=== PATIENT | female | born 1955 | race Caucasian/White ===

== ENCOUNTER → 2017-06-11 09:47 | Outpatient (CLI) | payer BC, SELFPAY ==
--- NOTE | 2017-06-11 09:52 | RAD_ITS ---
STUDY: X-RAY - LUMBAR SPINE REASON FOR EXAM: Female, 61 years old. Chronic low back pain radiating down right leg TECHNIQUE: 5 view(s) of the lumbar spine were obtained. COMPARISON: Prior study of 11/15/2009 FINDINGS: Normal lumbar lordosis. There is a mild mid lumbar levoscoliosis. There is a normal alignment of the vertebrae. There is diffuse endplate spondylosis. There is multi-level degenerative disc disease with multi-level disc space narrowing. There is no demonstrated fracture. There are bilateral degenerative facet changes from the L3-4 through L5-S1 levels. The soft tissue structures are unremarkable. RAD/L/S Spine Min 4 Views IMPRESSION: Degenerative changes of the spine, as detailed above. The degree of degenerative disease has slightly increased in severity in the interval. Electronically Signed: Kenny Head MD at 22:21 EST , Service support ,
--- NOTE | 2017-06-11 09:52 | RAD_ITS ---
STUDY: X-RAY - RIGHT HAND REASON FOR EXAM: Female, 61 years old. Second metacarpal pain TECHNIQUE: 3 view(s) of the hand. COMPARISON: None. FINDINGS: Normal radiocarpal articulation. Normal distal radioulnar joint. Normal visualized carpal bones. Normal carpal articulations Normal carpometacarpal articulation of the thumb. Normal second through fifth carpometacarpal joints. There are mild osteoarthritic changes of the first and second metacarpophalangeal joints, first interphalangeal joint, second, third, and fifth DIP joints. There are several tiny soft tissue calcifications lateral to the second metacarpal head. RAD/Hand Min 3 Views IMPRESSION: Mild diffuse osteoarthritic changes as reported above. Electronically Signed: Kenny Head MD at 22:15 EST , Service support ,
== END ==
LOC: MTRAD 09:49
PROVIDERS: Family Provider Family Medicine; PCP Family Medicine; Visit Provider Family Medicine
DX: S69.91XA Unspecified injury of right wrist, hand and finger(s), initial encounter (principal); X58.XXXA Exposure to other specified factors, initial encounter; Y93.9 Activity, unspecified; Y92.9 Unspecified place or not applicable; Y99.9 Unspecified external cause status; M54.9 Dorsalgia, unspecified; G89.29 Other chronic pain; M54.16 Radiculopathy, lumbar region
CPT/HCPCS: 72110; 73130

== ENCOUNTER 2017-10-01 08:55 | Emergency (ER) | payer BC, SELFPAY ==
--- NOTE | 2017-10-01 08:55 | DT_ITS ---
This patient was seen during an EMR downtime September 30, 2017 - October 07, 2017. This patient may have a combination of paper and electronic documentation or all paper documentation. All documentation is viewable within the e-chart portion of [employer] for each patient visit.
== END 2017-10-01 10:56 | disposition home or self-care (01) ==
PROVIDERS: Emergency Provider Emergency Medicine; Family Provider Family Medicine; PCP Family Medicine
DX: M54.41 Lumbago with sciatica, right side (principal); G89.29 Other chronic pain; E11.9 Type 2 diabetes mellitus without complications; Z79.4 Long term (current) use of insulin; Z72.0 Tobacco use
CPT/HCPCS: 96372; 99284

== ENCOUNTER → 2017-11-14 16:02 | Outpatient (CLI) | payer BC, SELFPAY ==
[2017-11-14 19:50] LABS: M R Staph aureus DNA By PCR Negative (Negative); Probe Check PASS; Staph aureus DNA By PCR NEGATIVE (Negative)
== END ==
PROVIDERS: Visit Provider Family Medicine
DX: E11.621 Type 2 diabetes mellitus with foot ulcer (principal); L97.509 Non-pressure chronic ulcer of other part of unspecified foot with unspecified severity
CPT/HCPCS: 87640

== ENCOUNTER → 2017-12-27 10:03 | Outpatient (CLI) | payer BC, SELFPAY | PROVIDERS: Family Provider Family Medicine; PCP Family Medicine; Visit Provider Family Medicine | DX: Z12.31 Encounter for screening mammogram for malignant neoplasm of breast (principal) | CPT/HCPCS: 77063; 77067 ==

== ENCOUNTER 2018-02-07 11:57 | Outpatient (RCR) | payer BC, SELFPAY ==
--- NOTE | 2018-02-07 12:44 | HP.PTEVAL ---
Patient's Visit Information GOLDIE TAPIA is a 62 year old F referred to Physical Therapy by Joseph Adrian DO with a diagnosis of BPPV. Date of Evaluation: 02/07/18 Physical Therapist: Jake Lawton DPT, OC - Visit Plan Frequency: 1x/Week Duration: 4 Weeks - Subjective Subjective: fOR 3 WEEKS INSIDIOUSLY SHE HAS SPINNING UPON arising from bed. this lasts a few seconds. Bending over also causes this at work picking up a box. Feels woozy most of the time in between episodes. Not felt normal in 4 weeks. Sleeping is never great due to stress out. Misses work alot due to back pain which is chronic. 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 Not missed due to dizzyness. Basic adls are slow but getting them done. - Objective C/s aROM WFL adn without pain. Walks well and normal and safe. Transfers I and easy. - R hallpike. + L hallpike for dizzyness and eye discomfort for 10 seconds. - Balance Scores Functional Gait Assessment Score: 27 % Disability: 10.0000 CATSIB Score (Max score 120 seconds): 120 - Goals Goal 1:: Abolish dizzyness with transfers Goal Time Frame: 2-4 Weeks Goal 2:: Bend and recover at work without symptoms. Goal Time Frame: 2-4 Weeks Goal 3:: Abolish woozy feeling 99% Goal Time Frame: 2-4 Weeks - Rehabilitation Potential Physical Therapy Diagnosis: LBPPV Rehabilitation Potential: Good - Anticipated Interventions Patient/Client Instruction: Educate patient on: Condition, Plan of Care For the Purpose of:: To increase tolerance to activity/condition/position Comment: positional treatments adn other vestibualr if needed For the Purpose of:: To increase tolerance to activity/condition/position Thank you for the opportunity to evaluate your patient. For Medicare and Medicare HMO plans, please review the plan of care and approve it. It will need to be FAXED BACK to us at [phone] for Medicare purposes. Please let me know if there are questions or concerns regarding this plan of care. Physician Signature: Date:
--- NOTE | 2018-02-11 12:26 | HP.PT.NRP ---
HP - Discharge Summary (1) - Patient Information GOLDIE TAPIA was seen in my office for initial evaluation on 02/07/18. The following Plan of Care was established for this patient: Initial Frequency: 1x/Week Initial Duration: 4 Weeks - Anticipated Interventions Patient/Client Instruction: Educate patient on: Condition, Plan of Care For the Purpose of:: To increase tolerance to activity/condition/position For the Purpose of:: To increase tolerance to activity/condition/position This patient was last seen in our office 02/07/18. Pertinent comments regarding their Physical therapy will appear below: Pt seen one visit and treated with Melinda maneuver. She was to f/u a week later but cancelled stating her problem is now gone. Will discontinue due to nonattendance At this point I will be discontinuing this patient from physical therapy. I would be happy to see this patient again in the future if found appropriate by the physician. Thank you! Jake Lawton, DPT, OC
== END 2018-02-07 19:00 | disposition home or self-care (01) ==
LOC: PT 11:57
PROVIDERS: Family Provider Family Medicine; PCP Family Medicine; Referring Provider Family Medicine; Visit Provider Family Medicine
DX: H81.10 Benign paroxysmal vertigo, unspecified ear (principal)
CPT/HCPCS: 97162; 97530

== ENCOUNTER → 2018-03-11 12:44 | Outpatient (CLI) | payer BC, SELFPAY ==
[2018-03-11 14:31] LABS: ALB/GLOB Ratio 0.8 RATIO (0.9-2.4); AST(SGOT) 15 U/L (15-37); Alanine Aminotransfer ALT/SGPT 30 U/L (13-56); Albumin, Serum 3.4 g/dL (3.2-5.0); Alkaline Phosphatase 126 U/L (45-117); Anion Gap 9 (5-15); BUN 13 mg/dL (7-18); BUN/Creat Ratio 15.7 RATIO (10-20); Calcium,Total 8.7 mg/dL (8.5-10.1); Chloride 103 mmol/L (98-107); Cholesterol 212 mg/dL (200); Creatinine, Serum 0.83 mg/dL (0.55-1.02); EST Glomerular Filtration Rate 74 mL/min (>60); Est Glom Filt Rate - Afr Amer 90 mL/min (>60); Globulin 4.3 g/dL (2.2-4.2); Glucose 124 mg/dL (74-106); High Density Lipoprotein 44 mg/dL; Potassium 4.5 mmol/L (3.5-5.1); Protein, Total 7.7 g/dL (6.4-8.2); Sodium Level 140 mmol/L (136-145); Thyroid Stim Hormone (TSH) 1.66 uIU/mL (0.358-3.74); Triglycerides 159 mg/dL; Very Low Density Lipoprotein 32 mg/dL (5-40)
== END ==
PROVIDERS: Family Provider Family Medicine; PCP Family Medicine; Referring Provider Family Medicine; Visit Provider Family Medicine
DX: E11.40 Type 2 diabetes mellitus with diabetic neuropathy, unspecified (principal); R53.83 Other fatigue
CPT/HCPCS: 36415; 80053; 80061; 82043; 82570; 84443

== ENCOUNTER 2018-05-18 17:22 | Emergency (ER) | payer BC, SELFPAY ==
[2018-05-18] VITALS (8 sets, daily range): BP systolic 138–149; BP diastolic 76–77; PULSE 69–88; RESP 16–20; TEMP 36.2–36.9; O2SAT 93–97; BMI 48.2
--- NOTE | 2018-05-18 17:45 | EKG12_ITS ---
Test Reason : SOB Blood Pressure : / mmHG Vent. Rate : 068 BPM Atrial Rate : 068 BPM P-R Int : 206 ms QRS Dur : 078 ms QT Int : 396 ms P-R-T Axes : 059 022 041 degrees QTc Int : 421 ms Normal sinus rhythm Low voltage QRS Septal infarct (cited on or before 27-FEB-2017) Abnormal ECG Confirmed by TAL ACHARYA, CHAYO ([id number]), purchasing expeditor ABRAHAM MORALES ([id number]) on 05/20/2018 1:05:52 PM Referred By: Confirmed By:CHAYO PARADA MD
--- NOTE | 2018-05-18 17:54 | ED.VISSUMM ---
- ER Visit Summary Date of Service: 05/18/18 Chief Complaint: Shortness of breath History of Present Illness: The patient is a 62 F presents with shortness of breath, cough. This has been ongoing for the past 1.5 weeks. She was seen by urgent care on Saturday and was started on prednisone and doxycycline. She has been using albuterol inhaler at home as well. She states she has not been diagnosed with COPD but she is a smoker. She denies chest pain. She has had subjective fever and chills. She has a productive cough. Denies other complaints. Physical Examination: Vitals are stable. Patient is afebrile. Alert no acute distress. HEENT exam thrush posterior pharynx Neck is supple. Lungs are expiratory wheezing bilaterally. Heart is regular rate and rhythm. Abdomen is soft nontender nondistended. Extremities are unremarkable. Skin is warm and dry. No focal neurologic deficit. Remainder of exam is unremarkable. Emergency Department Course and Treatment: EKG is sinus rate of 68 with no acute ischemic changes. Chest x-ray shows no acute process. CBC normal except for white count 11.6. Glucose 313, BUN 20, creatinine 1.05. Troponin is negative. Influenza negative. Patient is given albuterol, Atrovent aerosols with improvement. Pulse ox is 97% on room air with ambulation. She is given prescription for nystatin and Tessalon Perles. She is advised to follow-up with her primary care physician. Advised return to ED if worsening complaints. Disposition: Discharge home Impression: URI, oral thrush This note was generated with [employer] dictation software. It may contain incorrect words, spelling, and punctuation that were not noted in review of the chart prior to signing ED Disposition - Plan for ED Patient: Disposition: Home or Assisted Living Chief Complaint: Shortness of Breath Instructions: ED Upper Resp Infec No Abx Tx Prescriptions: Benzonatate [Tessalon Perle] 200 mg PO TID PRN PRN #20 capsule PRN Reason: Cough RX: Nystatin 500,000U/5ML [Mycostatin] 5 ml PO 4X/DAY #3 days Referrals: Joseph Adrian DO [Primary Care Provider] -
[2018-05-18] MEDS: Ipratropium/Albuterol Sulfate 3 ML AMPUL.NEB INHALATION (18:07)
[2018-05-18] MEDS: Albuterol 2.5 MG/3 ML VIAL.NEB. INHALATION ×2 (18:07→18:18)
[2018-05-18 18:11] LABS: Absolute Lymphocyte Count 3.17 X10^3/ul (0.83-4.51); Absolute Neutrophil Count 7.7 X10^3/uL (2.0-7.7); Basophil# 0.03 X10^3/uL; Basophil% 0.3 % (0-1); Eosinophil# 0.08 X10^3/uL; Eosinophils% 0.7 % (0-5); Lymphocyte # 3.17 X10^3/ul (4.0); Lymphocyte % 27.3 % (19-41); Mean Corp Hgb Conc 33.3 g/gl (32-36); Mean Corpuscular Hgb 29.6 pg (27.0-32.0); Mean Corpuscular Volume 88.7 fL (81-99); Mean Platelet Vol. 10.3 fl (6.2-12.0); Monocyte# 0.63 X10^3/uL; Monocyte% 5.4 % (0-10); Neutrophil # 7.65 X10^3/uL (2.7-7.7); Neutrophil % 65.9 % (47-70); POSITIVE COUNT NO; POSITIVE DIFFERENTIAL NO; POSITIVE MORPHOLOGY NO; Platelet Count 213 K/mm3 (150-450); RBC Distribution Width CV 14.3 % (11.6-14.6); RBC Distribution Width SD 46.6 fl (35.1-43.9); Red Blood Count 5.41 M/mm3 (4.2-5.4); White Blood Count 11.6 K/mm3 (4.4-11.0)
[2018-05-18 18:24] LABS: Anion Gap 10 (5-15); BUN 20 mg/dL (7-18); Calcium,Total 8.4 mg/dL (8.5-10.1); Chloride 105 mmol/L (98-107); Creatinine, Serum 1.05 mg/dL (0.55-1.02); EST Glomerular Filtration Rate 56 mL/min (>60); Est Glom Filt Rate - Afr Amer 68 mL/min (>60); Estimated Creatinine Clearance 49.99 ml/min; Glucose 313 mg/dL (74-106); Potassium 3.9 mmol/L (3.5-5.1); Sodium Level 138 mmol/L (136-145)
--- NOTE | 2018-05-18 18:30 | RAD_ITS ---
STUDY: X-RAY CHEST REASON FOR EXAM: Female, 62 years old. Shortness of breath TECHNIQUE: Frontal and lateral views of the chest were obtained. COMPARISON: February 27, 2017 FINDINGS: Lines and tubes: None. Lungs: Hyperinflated. Increased interstitial markings throughout the lungs without focal airspace opacities. Pleura: No demonstrated abnormality. Mediastinum/kate: Unremarkable. Cardiovascular: Normal size cardiac silhouette. Central vascularity unremarkable. Thoracic aorta unremarkable. Soft tissues: Unremarkable. Bones: Degenerative changes in spine and shoulders. Mild dextroscoliosis of the thoracic spine. Upper abdomen: No demonstrated abnormality. RAD/Chest PA and Lateral IMPRESSION: No acute cardiopulmonary abnormalities. There are findings of COPD with mild fibrosis. Electronically Signed: Alida Bee MD at 19:34 EST Tel Direct: [phone], Service support ,
--- NOTE | 2018-05-18 19:47 | ED.DEP ---
ED Disposition - Plan for ED Patient: Chief Complaint: Shortness of Breath Instructions: ED Upper Resp Infec No Abx Tx Prescriptions: Benzonatate [Tessalon Perle] 200 mg PO TID PRN PRN #20 capsule PRN Reason: Cough Nystatin 500,000U/5ML [Mycostatin] 5 ml PO 4X/DAY #3 days Referrals: Joseph Adrian DO [Primary Care Provider] -
--- OUTSIDE RECORDS SUMMARY | 2018-07-21 12:16 | XMS RPT_ITS ---
:1955 Author Organization OHIP Support Name Relationship Address Phone GIOVANNI CRUZ Unavailable Unavailable + [place] [address] WOOBR Unavailable [address] [place] [address] GIOVANNI CRUZ Unavailable Unavailable + [place] [address] WOOBR Unavailable [address] [place] [address] WOOBR Unavailable [address] [place] [address] BRICE, PAT Unavailable Unavailable + [place] [address] CRUZ, NINA Unavailable Unavailable + [place] [address] WOOBR Unavailable [address] [place] [address] BRICE, PAT Unavailable Unavailable + [place] [address] CRUZ, GIOVANNI Unavailable Unavailable + [place] [address] WOOBR Unavailable [address] [place] [address] BRICE, PAT Unavailable [address] + [place] [address] CRUZ, GIOVANNI Unavailable [address] + [place] [address] WOOBR Unavailable [address] + [address] [place] [address] BRICE, PAT Unavailable [address] + [place] [address] CRUZ, GIOVANNI Unavailable [address] + [place] [address] WOOBR Unavailable [address] + [address] [place] [address] BRICE, PAT Unavailable [address] + [place] [address] CRUZ, GIOVANNI Unavailable [address] + [place] [address] WOOBR Unavailable [address] + [address] [place] [address] BRICE, PAT Unavailable [address] + [place] [address] CRUZ, GIOVANNI Unavailable [address] + [place] [address] WOOBR Unavailable [address] + [address] [place] [address] Care Team Providers Name Role Phone MARY EVANGELISTA (PA) Referring Unavailable WOJCIECH REBOLLEDO (SHANTEL) Referring Unavailable Joseph Adrian Primary Care Unavailable Niya Wall Attending Unavailable Joseph Adrian Attending Unavailable Joseph Adrian Referring Unavailable Joseph Adrian Primary Care Unavailable Joseph Adrian Attending Unavailable Joseph Adrian Referring Unavailable Joseph Adrian Primary Care Unavailable Gabino Wilson Attending Unavailable Gabino Wilson Referring Unavailable Joseph Adrian Primary Care Unavailable Joseph Adrian Attending Unavailable Joseph Adrian Attending Unavailable Joseph Adrian Primary Care Unavailable Joseph Adrian Attending Unavailable Joseph Adrian Primary Care Unavailable Joseph Adrian Referring Unavailable Joseph Adrian Attending Unavailable Joseph Adrian Referring Unavailable Joseph Adrian Primary Care Unavailable PROBLEMS PROBLEMS DATE TYPE CONDITION / CODE ATTENDING STATUS SOURCE 03/11/2018 Unknown E11.40 - Type 2 NguyễnJoseph Active [place] diabetes mellitus Community with diabetic Hospital neuropathy, Repository unspecified / E11.40(ICD-10) 03/11/2018 Unknown R53.83 - Other Joseph Adrian Active [place] fatigue / Community R53.83(ICD-10) Hospital Repository 12/02/2017 Active Cough / NA Active [facility] R05(ICD-10) Main [place] Repository 11/14/2017 Unknown E11.621 - Type 2 Joseph Adrian Active [place] diabetes mellitus Community with foot ulcer / Hospital E11.621(ICD-10) Repository 11/14/2017 Unknown L97.509 - Joseph Adrian Active [place] Non-pressure Community chronic ulcer of Hospital other part of Repository unspecified foot with unspecified severity / L97.509(ICD-10) 10/25/2017 Unknown M54.5 - Low back Gabino Wilson Active [place] pain / Community M54.5(ICD-10) Hospital Repository PROCEDURES PROCEDURES No Procedure Records FoundRESULTS RESULTS LOW DOSE CT LUNG Observed: 05/24/2018 Status: F Source: [place] SCREENING 8:39 AM [facility] REPOSITORY [facility] Imaging Services [address] [place] [address] Lung Screening MR#: [id number] Acct: [id number] Name: JEANNETTE CRUZ Rep #: [id number] : 1955 F 62 From: Hemal Garland MD PCP: Joseph Adrian DO Status: REG CLI Study: Low Dose CT Lung Screening Date of Exam: 05/24/18 Exam# [id number] Ordering Dr: Joseph Adrian DO STUDY: LOW DOSE CT LUNG CANCER SCREENING REASON FOR EXAM: Female, 62 years old. 47 pack-year history, screening exam RADIATION DOSAGE (If Supplied By Facility): CTDIvol = ( 4.02 ) mGy, DLP = ( 129.89 ) mGycm TECHNIQUE: No contrast was administered. Low dose technique was utilized (average mAS-38 and kVp 120). 1.25 mm axial source images with a slice interval of 1.25- mm were reconstructed in lung windows. 2.5 mm axial source images with a slice interval of 2.5-mm were reconstructed in lung windows. 5.0 mm axial source images with a slice interval of 5.0-mm were reconstructed in soft tissue windows. Nodule measured using lung windows on PACS and/or independent workstation with automated measurement of minimum and maximum diameter. Nodule measurement reported as average diameter rounded to the nearest whole number. Growth is defined as an increase ins size of greater than 1.5 mm. COMPARISON: None. NODULES: Total lung nodules (excluding granulomas): 0 Emphysema: Not available Endobronchial lesion: None Aorta: Not aneurysmal. No atherosclerosis. Heart: Normal heart size. Pulmonary artery: Unremarkable for unenhanced study. Mediastinal nodes: No mediastinal dominant carolyn mass. Small, nonspecific mediastinal lymph nodes measure less than 7 mm in short axis. Other chest and abdominal findings: Adrenal glands not enlarged. There are degenerative changes of the thoracic spine. CT/Low Dose CT Lung Screening IMPRESSION: Lung-RADS category 1 - Continue annual screening with LDCT in 12 months. IMPORTANT NOTES FOR USE: ACR Lung-RADS Version 1.0 Assessment Categories Release Date: August 24, 2013 Category: Coded 0-4 bases on nodule(s) with highest degree of suspicion. Negative screen is defined as categories 1 and 2; a positive screen is defined as categories 3 and 4. Category 3 and 4A nodules that are unchanged on interval CT should be coded as category 2, and individuals returned to screening in 12 months. Category 4X: Category 3 or 4 nodules with additional imaging findings that increase the suspicion of lung cancer, such as spiculation, GGN that doubles in size in 1 year, enlarged lymph notes, etc. Category Modifiers: S (significant finding unrelated to lung cancer) and C (prior history of treated lung cancer) may be added to the 0-4 Lung-RADS Electronically Signed: Hemal Garland MD at 23:44 EST , Service support , CC: Joseph Adrian DO Java Lead Architect: Signed 12 LEAD ELECTROCARDIOGRAM Observed: 05/20/2018 Status: F Source: [place] 1:06 PM [facility] REPOSITORY [facility] Cardiovascular Services [address] [place] [address] 12 Lead EKG 05/18/18 1756 MR#: [id number] Acct: [id number] Name: JEANNETTE CRUZ Rep #: [id number] : 1955 62 From: Chris Lees MD Attending Dr: Status: DEP ER Ordering Dr: Niya Wall MD Date: 05/18/18 Location: ED Sex: F C Admitted: Test Reason : SOB Blood Pressure : / mmHG Vent. Rate : 068 BPM Atrial Rate : 068 BPM P-R Int : 206 ms QRS Dur : 078 ms QT Int : 396 ms P-R-T Axes : 059 022 041 degrees QTc Int : 421 ms Normal sinus rhythm Low voltage QRS Septal infarct (cited on or before 27-FEB-2017) Abnormal ECG Confirmed by CHRIS LEES MD ([id number]), fan mail editor ABRAHAM MORALES ([id number]) on 05/20/2018 1:05:52 PM Referred By: Confirmed By:CHRIS LEES MD 05/20/18 1305 Date Chris Lees MD CC: Niya Wall MD; Joseph Adrian DO Signed EMERGENCY DEPARTMENT Observed: 05/18/2018 Status: F Source: [place] SUMMARY 11:04 PM [facility] REPOSITORY [facility] Medical Records Department [address] [place] [address] Emergency Department Summary 05/18/18 1754 MR#: [id number] Acct: [id number] Name: JEANNETTE CRUZ Rep #: [id number] : 1955 62 From: Niya Wall MD PCP: Joseph Adrian DO Status: DEP ER - ER Visit Summary Date of Service: 05/18/18 Chief Complaint: Shortness of breath History of Present Illness: The patient is a 62 F presents with shortness of breath, cough. This has been ongoing for the past 1.5 weeks. She was seen by urgent care on Saturday and was started on prednisone and doxycycline. She has been using albuterol inhaler at home as well. She states she has not been diagnosed with COPD but she is a smoker. She denies chest pain. She has had subjective fever and chills. She has a productive cough. Denies other complaints. Physical Examination: Vitals are stable. Patient is afebrile. Alert no acute distress. HEENT exam thrush posterior pharynx Neck is supple. Lungs are expiratory wheezing bilaterally. Heart is regular rate and rhythm. Abdomen is soft nontender nondistended. Extremities are unremarkable. Skin is warm and dry. No focal neurologic deficit. Remainder of exam is unremarkable. Emergency Department Course and Treatment: EKG is sinus rate of 68 with no acute ischemic changes. Chest x-ray shows no acute process. CBC normal except for white count 11.6. Glucose 313, BUN 20, creatinine 1.05. Troponin is negative. Influenza negative. Patient is given albuterol, Atrovent aerosols with improvement. Pulse ox is 97% on room air with ambulation. She is given prescription for nystatin and Tessalon Perles. She is advised to follow-up with her primary care physician. Advised return to ED if worsening complaints. Disposition: Discharge home Impression: URI, oral thrush This note was generated with [employer] dictation software. It may contain incorrect words, spelling, and punctuation that were not noted in review of the chart prior to signing ED Disposition - Plan for ED Patient: Disposition: Home or Assisted Living Chief Complaint: Shortness of Breath Instructions: ED Upper Resp Infec No Abx Tx Prescriptions: Benzonatate [Tessalon Perle] 200 mg PO TID PRN PRN #20 capsule PRN Reason: Cough RX: Nystatin 500,000U/5ML [Mycostatin] 5 ml PO 4X/DAY #3 days Referrals: Joseph Adrian, [Primary Care Provider] - What to do if you have Problems For any increased pain, shortness of breath, bleeding, nausea or vomiting, chest pain, or any unexpected problems, contact your Primary Care Provider. Call [facility] ([phone]) or report to the closest Emergency Room. Call 911 if necessary. 05/18/18 4689 <Electronically signed by Niya Wall MD> Date Niya Wall MD Cosigner Signature (If Indicated): Date CC: Joseph Adrian DO DISCHARGE INSTRUCTION Observed: 05/18/2018 Status: F Source: [place] 7:49 PM [facility] REPOSITORY [facility] Medical Records Department [address] [place] [address] Discharge Instruction 05/18/181946 MR#: [id number] Acct: [id number] Name: JEANNETTE CRUZ Rep #: [id number] : 1955 62 From: Niya Wall MD PCP: Joseph Adrian DO Status: REG ER ED Disposition - Plan for ED Patient: Chief Complaint: Shortness of Breath Instructions: ED Upper Resp Infec No Abx Tx Prescriptions: Benzonatate [Tessalon Perle] 200 mg PO TID PRN PRN #20 capsule PRN Reason: Cough Nystatin 500,000U/5ML [Mycostatin] 5 ml PO 4X/DAY #3 days Referrals: Joseph Adrian DO [Primary Care Provider] - What to do if you have Problems For any increased pain, shortness of breath, bleeding, nausea or vomiting, chest pain, or any unexpected problems, contact your Primary Care Provider. Call [facility] ([phone]) or report to the closest Emergency Room. Call 911 if necessary. 05/18/181948 <Electronically signed by Niya Wall MD> Date Niya Wall MD Cosigner Signature (If Indicated): Date CC: Joseph Adrian DO CBC W/DIFF, AUTOMATED Collected: 05/18/2018 Status: F Source: [place] 6:00 PM [facility] REPOSITORY TYPE CODE TESTS RESULT OUT OF RANGE REFERENCE UNITS LAB L100.1000 4.4-11.0 K/mm3 High WBC 11.6 LAB L100.1200 4.2-5.4 M/mm3 High RBC 5.41 LAB L100.1300 12.0-15.0 g/dl High HGB 16.0 LAB L100.1400 37-47 % High HCT 48.0 LAB L100.1500 81-99 fL Normal MCV 88.7 LAB L100.1600 27.0-32.0 pg Normal MCH 29.6 LAB L100.1700 32-36 g/gl Normal MCHC 33.3 LAB L100.1810 11.6-14.6 % Normal RDW CV 14.3 LAB L100.1820 35.1-43.9 fl High RDW SD 46.6 LAB L100.1900 150-450 K/mm3 Normal PLT 213 LAB L100.2000 6.2-12.0 fl Normal MPV 10.3 LAB L100.2100 47-70 % Normal NEUT% 65.9 LAB L100.2200 19-41 % Normal LY% 27.3 LAB L100.2300 0-10 % Normal MONO% 5.4 LAB L100.2400 0-5 % Normal EO% 0.7 LAB L100.2500 0-1 % Normal BASO% 0.3 LAB L100.2550 0.0-0.9 % Normal IM GRAN % 0.400 Result Comment: IG% - Immature Granulocytes (promyelocytes, myelocytes and metamyelocytes) > 1% indicates that a LEFT SHIFT is Present. LAB L100.2620 2.0-7.7 X10 3/uL Normal Absolute Neut 7.7 LAB L100.2720 0.83-4.51 X10 3/ul Normal Absolute Lymph 3.17 Performed By: #### L100.0100 #### [facility] [address] [place], [place], [address] BASIC METABOLIC Collected: 05/18/2018 Status: F Source: [place] PROFILE ([facility]) 6:00 PM [facility] REPOSITORY TYPE CODE TESTS RESULT OUT OF RANGE REFERENCE UNITS LAB L501.0100 74-106 mg/dL High GLU 313 Result Comment: Glucose result greater than or equal to 200 mg/dL suggests DIABETES MELLITUS per A.D.A. criteria. Please note revised GLUCOSE reference range effective 2017. LAB L501.1000 7-18 mg/dL High BUN 20 LAB L501.1100 0.55-1.02 mg/dL High CREAT,SERUM 1.05 Result Comment: The validity of the calculated GFR AND GFRAA in patients over 70 years has not been determined. Clinical correlation is essential. LAB L501.1110 >60 mL/min Low EST GFR 56 Result Comment: Non- GFR Calc LAB L501.1115 >60 mL/min Normal EST GFR - AA 68 Result Comment: GFR Calc LAB L501.1255 ml/min Normal Estimated CRCL 49.99 LAB L501.1300 10-20 RATIO Normal BUN/CRE 19.0 LAB L501.2200 8.5-10 mg/dL Low .1 CA 8.4 LAB L501.5300 136-14 mmol/L Normal 5 NA 138 LAB L501.5600 3.5-5. mmol/L Normal 1 K 3.9 Result Comment: Slight Hemolysis, Result may be falsely increased. LAB L501.5900 98-107 mmol/L Normal CL 105 LAB L501.6100 21.0-32.0 mmol/L Normal CO2 23.0 LAB L501.6200 5-15 Normal GAP 10 Performed By: #### L500.2500, L501.4010 #### [facility] [address] [place], [address] TROPONIN-I Collected: 05/18/2018 Status: F Source: [place] 6:00 PM [facility] REPOSITORY TYPE CODE TESTS RESULT OUT OF RANGE REFERENCE UNITS LAB L501.4010 <0.045 ng/mL Normal < 0.015 TROPONIN-I Result Comment: TROPONIN-I EXPECTED VALUES <0.045 Negative 0.045 - 0.590 Consistent with Cardiac Damage > OR = 0.600 Critical Value Not every elevated troponin is indicative of VT. These values should be used with clinical judgement in examining the patient's clinical picture for diagnosis. To establish a diagnosis of VT versus myocardial injury, there must be a demonstrated rise and/or fall in the troponin values, in addition to ischemic symptoms, EKG changes, new regional wall motion abnormality, and/or angiographical evidence. PLEASE NOTE: REFERENCE RANGES EDITED 17 Performed By: #### L500.2500, L501.4010 #### [facility] [address] [place], [address] Observed: 05/18/2018 Status: F Source: [place] INFLUENZA A+B (RAPID 5:58 PM [facility]) REPOSITORY Order Date: 05/18/18 Has pt arrived? Y FLU A/B Rapid Negative test results should be confirmed with FLU PANEL MOLECULAR if indicated. Influenza Ag, Direct Presumptive NEGATIVE for Influenza A/B Antigen (See Note) Performed By: #### M101.0101 #### [facility] [address] [place], [address] CHEST PA AND LATERAL Observed: 05/18/2018 Status: F Source: [place] 5:47 PM [facility] REPOSITORY [facility] Imaging Services [address] [place] [address] Chest PA and Lateral MR#: [id number] Acct: [id number] Name: JEANNETTE CRUZ Rep #: [id number] : 1955 F 62 From: Alida Bee MD PCP: Joseph Adrian DO Status: REG ER Study: Chest PA and Lateral Date of Exam: 05/18/18 Exam# [id number] Ordering Dr: Niya Wall MD STUDY: X-RAY CHEST REASON FOR EXAM: Female, 62 years old. Shortness of breath TECHNIQUE: Frontal and lateral views of the chest were obtained. COMPARISON: February 27, 2017 FINDINGS: Lines and tubes: None. Lungs: Hyperinflated. Increased interstitial markings throughout the lungs without focal airspace opacities. Pleura: No demonstrated abnormality. Mediastinum/kate: Unremarkable. Cardiovascular: Normal size cardiac silhouette. Central vascularity unremarkable. Thoracic aorta unremarkable. Soft tissues: Unremarkable. Bones: Degenerative changes in spine and shoulders. Mild dextroscoliosis of the thoracic spine. Upper abdomen: No demonstrated abnormality. RAD/Chest PA and Lateral IMPRESSION: No acute cardiopulmonary abnormalities. There are findings of COPD with mild fibrosis. Electronically Signed: Alida Bee MD at 19:34 EST Tel Direct: [phone], Service support , CC: Niya Wall MD; Joseph Adrian DO Java Lead Architect: Signed XR CHEST 2V FRONTAL/LAT Observed: 05/12/2018 Status: F Source: [place] 3:41 PM [facility] REPOSITORY * * *Final Report* * * DATE OF EXAM: May 12 2018 3:41PM WOX [id number] - XR CHEST 2V FRONTAL/LAT / PROCEDURE REASON: Cough * * * * Physician Interpretation * * * * EXAMINATION: CHEST RADIOGRAPH (2 VIEW FRONTAL and LATERAL) CLINICAL HISTORY: Cough MQ: XC2_5 Comparison: 12/02/2017 RESULT: Lines, tubes, and devices: None. Lungs and pleura: Bilateral interstitial prominence without focal consolidation, significant pleural effusion or pneumothorax. Cardiomediastinal silhouette: Stable. Other: No acute osseous abnormality. Degenerative changes are present in the thoracic spine. IMPRESSION: Bilateral interstitial prominence without focal consolidation or pleural effusion. Java Lead Architect: PSCB Transcribe Date/Time: May 12 2018 3:54P Dictated by : SIXTO MELISSA MD This examination was interpreted and the report reviewed and electronically signed by: SIXTO MELISSA MD on May 12 2018 3:55PM EST [id number] Observed: 05/12/2018 Status: COMPLETED Source: [place] 3:31 PM [facility] REPOSITORY HNO ID: [id number] Author: Amy Purvis (RtRajendra Lora Service: (none) Author Type: [employer] Type: Progress Notes Filed: 05/12/2018 3:39 PM Note Text: Radiology Service Progress Note PATIENT NAME: Jeannette Cruz DATE OF SERVICE: May 12, 2018 TIME: 3:31 PM PATIENT IDENTITY VERIFICATION COMPLETED USING TWO (2) METHODS: Patient confirmed name verbally and Date of . PATIENT GENDER DATA: Female. status: : No status: NO. PATIENT RELEVANT IMPLANT DATA REVIEWED: Not Applicable RADIOLOGY DEPARTMENT: General X-ray: Exam(s) Completed: Chest X-Ray PERIPHERAL IV DATA: Not applicable SIGNED BY: RT Jyothi May 12, 2018 3:31 PM CNOV Observed: 05/12/2018 Status: COMPLETED Source: [place] 2:45 PM [facility] REPOSITORY Office Visit ([facility]) JEANNETTE CRUZ ([id number]) 1955 F Date Time Provider Department 05/12/18 2:45 PM WOJCIECH REBOLLEDO (KELLY) WSTR During your visit today, we recorded the following information about you: Temperature Pulse Respiration Blood pressure 98.9 degrees 88/minute 28/minute 112/70 Weight 133.4 kg Wojciech Rebolledo APRN.KELLY 05/12/2018 4:52 PM Signed Subjective HPI HPI Jeannette Cruz is a 62 year old female who presents today for CC of cough, sore throat. This started 4 days ago. Has tried otc medication. Symptoms are worsened by nothing. Risk factors patient is an everyday smoker and diabetic. 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 - Diabetes (HCC) PAST SURGICAL HISTORY Procedure Laterality Date - COLONOSCOP W/ OR W/O [facility] SPEC 02/20/13 Colonoscopy repeat 6 months - COLONOSCOP W/ OR W/O [facility] SPEC 12/18/13 Colonoscopy repeat 1 month due to prep - COLONOSCOP W/ OR W/O [facility] SPEC 01/18/2014 Colonoscopy - LIGATE FALLOPIAN TUBE Tubal ligation - PAST SURGICAL HISTORY OF CTR Right hand - REMOVAL GALLBLADDER Cholecystectomy - REMOVAL OF TONSILS,<12 Y/O Tonsillectomy - VAGINAL HYSTERECTOMY 2013 complex hyperplasia with atypia ALLERGIES Celebrex [Celecoxib] MEDICATIONS oxyCODONE-acetaminophen 7.5-325 mg TbBO Take by mouth. lovastatin (MEVACOR) 10 mg tablet Take 10 mg by mouth daily at bedtime. lisinopril (ZESTRIL, PRINIVIL) 10 mg tablet Take 10 mg by mouth once daily. LIRAGLUTIDE (VICTOZA 3-MARQUIS SUBCUTANEOUS) Inject subcutaneously. metFORMIN 500 mg tablet Take 1,000 mg by mouth twice daily with meals. phentermine HCl (PHENTERMINE ORAL) Take by mouth. gabapentin (NEURONTIN) 300 mg capsule Take 300 mg by mouth three times daily. benzonatate (TESSALON PERLES) 100 mg capsule Take 2 capsules by mouth three times daily as needed. albuterol HFA (VENTOLIN HFA) 90 mcg/actuation inhaler Inhale 2 Puffs as instructed every 4 hours as needed for Wheezing/Shortness of Breath. traMADol (ULTRAM) 50 mg tablet Take 50 mg by mouth every 8 hours as needed. predniSONE (DELTASONE) 20 mg tablet 1tablet by mouth daily for 3 days meloxicam (MOBIC) 15 mg tablet Take 1 tablet by mouth once daily. With food. albuterol HFA (PROAIR HFA) 90 mcg/actuation inhaler Inhale 2 Puffs as instructed every 4 hours as needed. ondansetron orally disintegrating (ZOFRAN ODT) 4 mg disintegrating tablet Take 1 tablet by mouth every 6 hours as needed for Nausea/Vomiting. Benzonatate (TESSALON) 200 mg capsule Take 200 mg by mouth three times daily as needed for Cough. colesevelam (WELCHOL) 625 mg tablet Take 1,875 mg by mouth three times daily. sitaGLIPtin (JANUVIA) 100 mg tablet Take 100 mg by mouth once daily. FAMILY HISTORY Problem Relation Age of Onset - Arthritis Mother - Diabetes Father - Heart Father Social History Substance Use Topics - Smoking status: Current Every Day Smoker Packs/day: 0.30 Years: 30.00 Types: Cigarettes - Smokeless tobacco: Never Used Comment: 10 cig per day - Alcohol use No Review of Systems Constitutional: Negative for fever. HENT: Positive for congestion, sinus pain and sore throat. Negative for ear pain and nosebleeds. Respiratory: Positive for cough and shortness of breath. Negative for wheezing. Cardiovascular: Negative for chest pain. Musculoskeletal: Negative for neck pain. Skin: Negative for itching and rash. Objective Blood pressure 112/70, pulse 88, temperature 37.2 ?C (98.9 ?F), temperature source Left Tympanic, resp. rate 28, weight 133.4 kg (294 lb), last menstrual period 04/29/2007, SpO2 96 %. Physical Exam Constitutional: She is oriented to person, place, and time and well-developed, well-nourished, and in no distress. Non-toxic appearance. She has a sickly appearance (mild). No distress. HENT: Head: Normocephalic and atraumatic. Right Ear: Hearing, tympanic membrane, external ear and ear canal normal. Left Ear: Hearing, tympanic membrane, external ear and ear canal normal. Nose: Nose normal. Mouth/Throat: Uvula is midline, oropharynx is clear and moist and mucous membranes are normal. Eyes: Pupils are equal, round, and reactive to light. Conjunctivae and lids are normal. Right eye exhibits no discharge. Left eye exhibits no discharge. No scleral icterus. Neck: Trachea normal and normal range of motion. Neck supple. Cardiovascular: Normal rate, regular rhythm and normal heart sounds. Pulmonary/Chest: Accessory muscle usage (prior to neb treatment. ) present. She has decreased breath sounds in the right lower field and the left lower field. She has rhonchi (scattered bilaterally, clear with cough). Lungs clear, diminished after nebulizer treatment and respirations easy, patient reports relief. Lymphadenopathy: She has no cervical adenopathy. Neurological: She is alert and oriented to person, place, and time. Skin: No rash noted. She is not diaphoretic. ASSESSMENT/PLAN: 1. Sinobronchitis - ICD9: 473.9, 490, ICD10: J32.9, J40 (primary diagnosis) - Will begin treatment with Doxycline - Supportive care with plenty of fluids, rest, and analgesia prn. - Follow up in 3-5 days if symptoms persist or worsen. -discussed smoking cessation 2. Cough - ICD9: 786.2, ICD10: R05 xr neg for active process, will treat with doxy/prednisone -If you experience chest pain/shortness of breath go to ER - ALBUTEROL SULFATE 2.5 MG/3 ML (0.083 %) SOLUTION FOR NEBULIZATION - XR CHEST 2V FRONTAL/LAT - Dictated by : SIXTO MELISSA MD Impression IMPRESSION: Bilateral interstitial prominence without focal consolidation or pleural effusion. Prescription instructions reviewed with patient as applicable. Patient advised if symptoms do not improve or if symptoms worsen sooner, to contact the office for further evaluation by their primary care physician. Potential red flag symptoms discussed with the patient. Reviewed appropriate action plan to take if red flag symptoms occur. Patient agreeable to treatment plan. Wojciech Rebolledo APRN.KELLY Deleon LPN 05/12/2018 3:20 PM Signed 2.5 solution aerosol treatment given per doctor's orders. Prior to treatment O2 Sat is 96%. Treatment completed. O2 sat is 98%. Tolerated well.Saskia Deleon LPN Referring Provider: SELF [200] Allergies As of Date: 05/12/2018 Noted Allergy Reaction CELEBREX (CELECOXIB) 10/21/2015 2 - Rash Date Reviewed: 05/12/2018 Reviewed by: Wojciech (Kelly) - Fully Assessed Reason for Visit: Flu Like Symptoms [267] Reason For Visit History Recorded Primary Visit Diagnosis:Sinobronchitis [J32.9, J40] Other Visit Diagnosis:Cough [R05] Order(s):[] albuterol 2.5 mg /3 mL (0.083 %) 2.5 mg (PROVENTIL)Disp: Rfl: XR CHEST 2V FRONTAL/LAT [[id number]] Order #: [id number] #:[id number] doxycycline monohydrate 100 mg tabletTake 1 tablet by mouth twice daily for 10 days.Disp: 20 tabletRfl: 0 predniSONE (DELTASONE) 20 mg tabletTake 2 tablets by mouth once daily for 5 days.Disp: 10 tabletRfl: 0 Prescriptions as of 05/12/2018 Sig: OXYCODONE 7.5 MG-ACETAMINOPHE* Take by mouth. LOVASTATIN 10 MG TABLET Take 10 mg by mouth daily at * LISINOPRIL 10 MG TABLET Take 10 mg by mouth once cally* VICTOZA 3-MARQUIS SUBCUTANEOUS Inject subcutaneously. METFORMIN 500 MG TABLET Take 1,000 mg by mouth twice * DOXYCYCLINE MONOHYDRATE 100 M* Take 1 tablet by mouth twice * PREDNISONE 20 MG TABLET Take 2 tablets by mouth once * PHENTERMINE ORAL Take by mouth. GABAPENTIN 300 MG CAPSULE Take 300 mg by mouth three ti* ALBUTEROL SULFATE HFA 90 MCG/* Inhale 2 Puffs as instructed * TRAMADOL 50 MG TABLET Take 50 mg by mouth every 8 h* MELOXICAM 15 MG TABLET Take 1 tablet by mouth once d* Patient not taking: Reported on 12/02/2017 ALBUTEROL SULFATE HFA 90 MCG/* Inhale 2 Puffs as instructed * Patient not taking: Reported on 12/02/2017 ONDANSETRON 4 MG DISINTEGRATI* Take 1 tablet by mouth every * Patient not taking: Reported on 12/02/2017 BENZONATATE 200 MG CAPSULE Take 200 mg by mouth three ti* Patient not taking: Reported on 12/02/2017 COLESEVELAM 625 MG TABLET Take 1,875 mg by mouth three * SITAGLIPTIN 100 MG TABLET Take 100 mg by mouth once joshua* Problem List As Of Date 05/12/2018 Noted Resolved PMB (postmenopausal bleeding) [N95.0] INVALID FOR*07/03/2013 Thickened endometrium [R93.89] INVALID FOR*07/03/2013 Complex endometrial hyperplasia without atypia *INVALID FOR*07/03/2013 Visit Notes: >> Saskia Deleon LPN Mon May 12, 2018 3:19 PM Status: Signed 2.5 solution aerosol treatment given per doctor's orders. Prior to treatment O2 Sat is 96%. Treatment completed. O2 sat is 98%. Tolerated well.Saskia Deleon LPN Prescriptions ordered this encounter Disp Refills Start End ALBUTEROL SULFATE 2.5 MG/3 ML (0.083* 05/12/2018 05/12/2018 Route: INHALATION DOXYCYCLINE MONOHYDRATE 100 MG TABLET 20 t* 0 05/12/2018 05/22/2018 Cmt: May transfer to [facility] if less expensive. Route: ORAL Sig: Take 1 tablet by mouth twice daily for 10 days. PREDNISONE 20 MG TABLET 10 t* 0 05/12/2018 05/17/2018 Route: ORAL Sig: Take 2 tablets by mouth once daily for 5 days. Medications Discontinued During This Encounter predniSONE (DELTASONE) 20 mg tablet 3 ta* 0 10/21/2015 05/12/2018 Sitablet by mouth daily for 3 days Patient not taking: Reported on 12/02/2017 Disc: Reason for discontinue is not on file. benzonatate (TESSALON PERLES) 100 mg* 30 c* 0 12/02/2017 05/12/2018 Route: ORAL Sig: Take 2 capsules by mouth three times daily as needed. Disc: Reason for discontinue is not on file. Encounter Status:Closed by WOJCIECH REBOLLEDO CNP on 05/12/18 PROGRESS Observed: 05/12/2018 Status: COMPLETED Source: [facility] 2:44 PM [facility] REPOSITORY HNO ID: [id number] Author: Wojciech Darby) Service: (none) Author Type: Nurse Practitioner Type: Progress Notes Filed: 05/12/2018 4:52 PM Note Text: Subjective HPI HPI Jeannette Cruz is a 62 year old female who presents today for CC of cough, sore throat. This started 4 days ago. Has tried otc medication. Symptoms are worsened by nothing. Risk factors patient is an everyday smoker and diabetic. 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 - Diabetes (HCC) PAST SURGICAL HISTORY Procedure Laterality Date - COLONOSCOP W/ OR W/O BRS SPEC 02/20/13 Colonoscopy repeat 6 months - COLONOSCOP W/ OR W/O BRS SPEC 12/18/13 Colonoscopy repeat 1 month due to prep - COLONOSCOP W/ OR W/O [facility] SPEC 01/18/2014 Colonoscopy - LIGATE FALLOPIAN TUBE Tubal ligation - PAST SURGICAL HISTORY OF CTR Right hand - REMOVAL GALLBLADDER Cholecystectomy - REMOVAL OF TONSILS,<12 Y/O Tonsillectomy - VAGINAL HYSTERECTOMY 2013 complex hyperplasia with atypia ALLERGIES Celebrex [Celecoxib] MEDICATIONS oxyCODONE-acetaminophen 7.5-325 mg TbBO Take by mouth. lovastatin (MEVACOR) 10 mg tablet Take 10 mg by mouth daily at bedtime. lisinopril (ZESTRIL, PRINIVIL) 10 mg tablet Take 10 mg by mouth once daily. LIRAGLUTIDE (VICTOZA 3-MARQUIS SUBCUTANEOUS) Inject subcutaneously. metFORMIN 500 mg tablet Take 1,000 mg by mouth twice daily with meals. phentermine HCl (PHENTERMINE ORAL) Take by mouth. gabapentin (NEURONTIN) 300 mg capsule Take 300 mg by mouth three times daily. benzonatate (TESSALON PERLES) 100 mg capsule Take 2 capsules by mouth three times daily as needed. albuterol HFA (VENTOLIN HFA) 90 mcg/actuation inhaler Inhale 2 Puffs as instructed every 4 hours as needed for Wheezing/Shortness of Breath. traMADol (ULTRAM) 50 mg tablet Take 50 mg by mouth every 8 hours as needed. predniSONE (DELTASONE) 20 mg tablet 1tablet by mouth daily for 3 days meloxicam (MOBIC) 15 mg tablet Take 1 tablet by mouth once daily. With food. albuterol HFA (PROAIR HFA) 90 mcg/actuation inhaler Inhale 2 Puffs as instructed every 4 hours as needed. ondansetron orally disintegrating (ZOFRAN ODT) 4 mg disintegrating tablet Take 1 tablet by mouth every 6 hours as needed for Nausea/Vomiting. Benzonatate (TESSALON) 200 mg capsule Take 200 mg by mouth three times daily as needed for Cough. colesevelam (WELCHOL) 625 mg tablet Take 1,875 mg by mouth three times daily. sitaGLIPtin (JANUVIA) 100 mg tablet Take 100 mg by mouth once daily. FAMILY HISTORY Problem Relation Age of Onset - Arthritis Mother - Diabetes Father - Heart Father Social History Substance Use Topics - Smoking status: Current Every Day Smoker Packs/day: 0.30 Years: 30.00 Types: Cigarettes - Smokeless tobacco: Never Used Comment: 10 cig per day - Alcohol use No Review of Systems Constitutional: Negative for fever. HENT: Positive for congestion, sinus pain and sore throat. Negative for ear pain and nosebleeds. Respiratory: Positive for cough and shortness of breath. Negative for wheezing. Cardiovascular: Negative for chest pain. Musculoskeletal: Negative for neck pain. Skin: Negative for itching and rash. Objective Blood pressure 112/70, pulse 88, temperature 37.2 ?C (98.9 ?F), temperature source Left Tympanic, resp. rate 28, weight 133.4 kg (294 lb), last menstrual period 04/29/2007, SpO2 96 %. Physical Exam Constitutional: She is oriented to person, place, and time and well-developed, well-nourished, and in no distress. Non-toxic appearance. She has a sickly appearance (mild). No distress. HENT: Head: Normocephalic and atraumatic. Right Ear: Hearing, tympanic membrane, external ear and ear canal normal. Left Ear: Hearing, tympanic membrane, external ear and ear canal normal. Nose: Nose normal. Mouth/Throat: Uvula is midline, oropharynx is clear and moist and mucous membranes are normal. Eyes: Pupils are equal, round, and reactive to light. Conjunctivae and lids are normal. Right eye exhibits no discharge. Left eye exhibits no discharge. No scleral icterus. Neck: Trachea normal and normal range of motion. Neck supple. Cardiovascular: Normal rate, regular rhythm and normal heart sounds. Pulmonary/Chest: Accessory muscle usage (prior to neb treatment. ) present. She has decreased breath sounds in the right lower field and the left lower field. She has rhonchi (scattered bilaterally, clear with cough). Lungs clear, diminished after nebulizer treatment and respirations easy, patient reports relief. Lymphadenopathy: She has no cervical adenopathy. Neurological: She is alert and oriented to person, place, and time. Skin: No rash noted. She is not diaphoretic. ASSESSMENT/PLAN: 1. Sinobronchitis - ICD9: 473.9, 490, ICD10: J32.9, J40 (primary diagnosis) - Will begin treatment with Doxycline - Supportive care with plenty of fluids, rest, and analgesia prn. - Follow up in 3-5 days if symptoms persist or worsen. -discussed smoking cessation 2. Cough - ICD9: 786.2, ICD10: R05 xr neg for active process, will treat with doxy/prednisone -If you experience chest pain/shortness of breath go to ER - ALBUTEROL SULFATE 2.5 MG/3 ML (0.083 %) SOLUTION FOR NEBULIZATION - XR CHEST 2V FRONTAL/LAT - Dictated by : SIXTO MELISSA MD Impression IMPRESSION: Bilateral interstitial prominence without focal consolidation or pleural effusion. Prescription instructions reviewed with patient as applicable. Patient advised if symptoms do not improve or if symptoms worsen sooner, to contact the office for further evaluation by their primary care physician. Potential red flag symptoms discussed with the patient. Reviewed appropriate action plan to take if red flag symptoms occur. Patient agreeable to treatment plan. Wojciech Rebolledo APRN.SMALL MACHINE BINDERY OPERATOR MICROALB:CREAT Collected: 03/11/2018 Status: F Source: [facility] 12:51 PM [facility] REPOSITORY TYPE CODE TESTS RESULT OUT OF RANGE REFERENCE UNITS LAB L501.1200 NO RANGE EST. mg/dL Normal UR CREAT 51.40 LAB L502.0500 NO RANGE EST. mg/L Normal 312.0 MICROALBUMIN ,UR LAB L502.0600 <30 mg/g CRE mg/g CRE High 607.0 MALB:CREAT Performed By: #### L502.0250 #### [facility] [place], [address] COMPREHENSIVE METABOLIC Collected: 03/11/2018 Status: F Source: [facility]ATHAN NAYLOR 12:51 PM [facility] REPOSITORY TYPE CODE TESTS RESULT OUT OF RANGE REFERENCE UNITS LAB L501.0100 74-106 mg/dL High GLU 124 Result Comment: Fasting Glucose result from 100 to 125 mg/dL suggests IMPAIRED HOMEOSTASIS per A.D.A. criteria. Please note revised GLUCOSE reference range effective 2017. LAB L501.1000 7-18 mg/dL Normal BUN 13 LAB L501.1100 0.55-1.02 mg/dL Normal CREAT,SERUM 0.83 Result Comment: The validity of the calculated GFR AND GFRAA in patients over 70 years has not been determined. Clinical correlation is essential. LAB L501.1110 >60 mL/min Normal EST GFR 74 Result Comment: Non- GFR Calc LAB L501.1115 >60 mL/min Normal EST GFR - AA 90 Result Comment: GFR Calc LAB L501.1300 10-20 RATIO Normal BUN/CRE 15.7 LAB L501.1500 6.4-8.2 g/dL T Normal PROT 7.7 LAB L501.1800 3.2-5.0 g/dL Normal ALB 3.4 LAB L501.1950 2.2-4.2 g/dL High GLOB 4.3 LAB L501.2000 0.9-2.4 RATIO Low A/G 0.8 LAB L501.2200 8.5-10.1 mg/dL CA Normal 8.7 LAB L501.4100 15-37 U/L Normal AST 15 Result Comment: Slight Hemolysis, Result may be falsely increased. LAB L501.4305 45-117 U/L High ALK P 126 LAB L501.4405 13-56 U/L Normal ALT 30 LAB L501.4600 0.20-1.00 mg/dL Normal T BILI 0.40 LAB L501.5300 136-145 mmol/L Normal NA 140 LAB L501.5600 3.5-5.1 mmol/L Normal K 4.5 Result Comment: Slight Hemolysis, Result may be falsely increased. LAB L501.5900 98-107 mmol/L Normal CL 103 LAB L501.6100 21.0-32.0 mmol/L Normal CO2 28.0 LAB L501.6200 5-15 Normal 9 GAP Performed By: #### L500.4050, L500.4100, L501.9520 #### [facility] [address] [place], [place], [address] LIPID PROFILE Collected: 03/11/2018 Status: F Source: NATHAN 12:51 PM [facility] REPOSITORY TYPE CODE TESTS RESULT OUT OF RANGE REFERENCE UNITS LAB L501.4900 200 mg/dL High CHOL 212 Result Comment: <200 mg/dL Desirable 200-240 mg/dL Borderline >240 mg/dL High Risk LAB L501.5000 mg/dL Normal TRIG 159 Result Comment: The drugs N-Acetylcysteine and Metamizole may falsely depress this assay. Serum Triglycerides Reference Interval Normal <150 mg/dL Borderline high 150 - 199 mg/dL High 200 - 499 mg/dL Very High > or = 500 mg/dL LAB L501.6400 mg/dL Normal HDL 44 Result Comment: The drugs N-Acetylcysteine and Metamizole may falsely depress this assay. Reference Range HDL <40 mg/dL Low HDL Cholesterol HDL >or= 60 mg/dL High HDL Cholesterol LAB L501.6500 0-130 mg/dL High LDL 136 LAB L501.6600 5-40 mg/dL Normal VLDL 32 Performed By: #### L500.4050, L500.4100, L501.9520 #### [facility] [address] [place], [place], [address] THYROID STIM HORMONE Collected: 03/11/2018 Status: F Source: NATHAN (TSH) 12:51 PM [facility] REPOSITORY TYPE CODE TESTS RESULT OUT OF RANGE REFERENCE UNITS LAB L501.9520 0.358-3.74 uIU/mL Normal TSH 1.66 Performed By: #### L500.4050, L500.4100, L501.9520 #### [facility] [address] [place], [address] INITAL EVALUATION (1) Observed: 02/10/2018 Status: F Source: NATHAN - PT 6:47 AM [facility] REPOSITORY [facility] Physical Therapy [facility] [place], [place] [address] [phone] Fax REHABILITATION SERVICES INITIAL EVALUATION MR#: [id number] Acct: [id number] Name: JEANENTTE CRUZ Rep #: [id number] : 1955 62 From: Jake Lawton DPT, OCS, CSCS Referring Dr.: Joseph Adrian DO Status: REG RCR Insurance: [employer] SELF PAY INSURANCE Patient's Visit Information JEANNETTE CRUZ is a 62 year old F referred to Physical Therapy by Joseph Adrian DO with a diagnosis of BPPV. Date of Evaluation: 02/07/18 Physical Therapist: Jake Lawton, TUYET, OC - Visit Plan Frequency: 1x/Week Duration: 4 Weeks - Subjective Subjective: fOR 3 WEEKS INSIDIOUSLY SHE HAS SPINNING UPON arising from bed. this lasts a few seconds. Bending over also causes this at work picking up a box. Feels woozy most of the time in between episodes. Not felt normal in 4 weeks. Sleeping is never great due to stress out. Misses work alot due to back pain which is chronic. 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 Not missed due to dizzyness. Basic adls are slow but getting them done. - Objective C/s aROM WFL adn without pain. Walks well and normal and safe. Transfers I and easy. - R hallpike. + L hallpike for dizzyness and eye discomfort for 10 seconds. - Balance Scores Functional Gait Assessment Score: 27 % Disability: 10.0000 CATSIB Score (Max score 120 seconds): 120 - Goals Goal 1:: Abolish dizzyness with transfers Goal Time Frame: 2-4 Weeks Goal 2:: Bend and recover at work without symptoms. Goal Time Frame: 2-4 Weeks Goal 3:: Abolish woozy feeling 99% Goal Time Frame: 2-4 Weeks - Rehabilitation Potential Physical Therapy Diagnosis: LBPPV Rehabilitation Potential: Good - Anticipated Interventions Patient/Client Instruction: Educate patient on: Condition, Plan of Care For the Purpose of:: To increase tolerance to activity/condition/position Comment: positional treatments adn other vestibualr if needed For the Purpose of:: To increase tolerance to activity/condition/position Thank you for the opportunity to evaluate your patient. For Medicare and Medicare HMO plans, please review the plan of care and approve it. It will need to be FAXED BACK to us at [phone] for Medicare purposes. Please let me know if there are questions or concerns regarding this plan of care. Physician Signature: Date: <Electronically signed by Jake Lawton DPT, OCS, CSCS> 02/10/18 0647 CC: Joseph Adrian DO EBG Signed For Medicare only, by signing this I certify the plan of care. Physicians Signature Date SCREENING MAMM (CAD), Observed: 12/27/2017 Status: F Source: [facility] 10:07 AM [facility] REPOSITORY [facility] Imaging Services [address] [place] [address] SCREENING MAMM (CAD), BILAT MR#: [id number] Acct: [id number] Name: JEANNETTE CRUZ Rep #: [id number] : 1955 F 62 From: Daniel Barba MD PCP: Joseph Adrian DO Status: REG CLI Study: SCREENING MAMM (CAD), BILAT Date of Exam: 12/27/17 Exam# [id number] Ordering Dr: Joseph Adrian DO MAMMOGRAPHY - BILATERAL SCREENING REASON FOR EXAM: Female, 62 years old. Routine annual screening examination. PERTINENT HISTORY: Non-contributory. TECHNIQUE: Digital bilateral breast edgardo (3D mammographic acquisition) in the CC and MLO projections. 2-D mediolateral oblique (MLO) and craniocaudad (CC) views of both breasts were obtained. CAD: Full Field Digital Mammography with Computer Added Detection was performed. COMPARISON: Comparison is made with prior outside examination dated February 27, 2013. FINDINGS: Breast Composition: The breasts are almost entirely fatty. There are no dominant masses or suspicious calcifications. No other significant abnormalities are identified. There has been no significant change since the prior study. BI/SCREENING MAMM (CAD), BILAT IMPRESSION: Stable bilateral screening mammogram. Yearly follow-up mammogram recommended. (A) ASSESSMENT CATEGORY: BIRADS Category 1: Negative. A letter regarding these results will be sent to the patient by the facility within 30 days. Approximately 10% of breast cancers are not detected by mammography. A normal mammogram should not delay biopsy of a clinically suspicious abnormality. [id number] Electronically Signed: Daniel Barba MD at 12:42 EDT Tel [phone], Service support , CC: Joseph Adrian DO Java Lead Architect: Signed PROGRESS Observed: 12/02/2017 Status: COMPLETED Source: [facility] 1:12 PM [facility] REPOSITORY O ID: [id number] Author: Mary Evangelista (Pa) Service: (none) Author Type: Physician Call Or Contact Centre Manager Type: Progress Notes Filed: 12/02/2017 1:20 PM Note Text: Subjective HPI Pt presents with cough, sinus pressure, congestion, for 10 days. The past couple days she has had some shortness of breath. She denies leg pain or swelling. No fevers, but she has had some chills. She states the coughing keeps her up at night. The coughing has been hurting her mid back as well. She is on oxycodone and gabapentin for chronic back pain. She denies hx of CHF or PE/DVT. No chest pain. She is a smoker. She denies known COPD. No recent travel or surgeries. Review of Systems Constitutional: Positive for chills. Negative for fever. HENT: Positive for congestion and sinus pain. Negative for sore throat. Eyes: Negative. Respiratory: Positive for cough, shortness of breath and wheezing. Negative for sputum production. Cardiovascular: Negative. Gastrointestinal: Negative. Genitourinary: Negative. Musculoskeletal: Positive for back pain. Skin: Negative. All other systems reviewed and are negative. PAST MEDICAL HISTORY Diagnosis Date - Abnormal uterine bleeding - Complex endometrial hyperplasia with atypia 2013 s/p hyst - Diabetes (HCC) Current Outpatient Prescriptions: oxyCODONE-acetaminophen 7.5-325 mg TbBO Take by mouth. Disp: Rfl: phentermine HCl (PHENTERMINE ORAL) Take by mouth. Disp: Rfl: gabapentin (NEURONTIN) 300 mg capsule Take 300 mg by mouth three times daily. Disp: Rfl: lovastatin (MEVACOR) 10 mg tablet Take 10 mg by mouth daily at bedtime. Disp: Rfl: lisinopril (ZESTRIL, PRINIVIL) 10 mg tablet Take 10 mg by mouth once daily. Disp: Rfl: LIRAGLUTIDE (VICTOZA 3-MARQUIS SUBCUTANEOUS) Inject subcutaneously. Disp: Rfl: metFORMIN 500 mg tablet Take 1,000 mg by mouth twice daily with meals. Disp: Rfl: predniSONE (DELTASONE) 20 mg tablet Take 1 tablet by mouth twice daily for 5 days. Disp: 10 tablet Rfl: 0 benzonatate (TESSALON PERLES) 100 mg capsule Take 2 capsules by mouth three times daily as needed. Disp: 30 capsule Rfl: 0 doxycycline (VIBRA-TABS) 100 mg tablet Take 1 tablet by mouth twice daily for 10 days. Disp: 20 tablet Rfl: 0 albuterol HFA (VENTOLIN HFA) 90 mcg/actuation inhaler Inhale 2 Puffs as instructed every 4 hours as needed for Wheezing/Shortness of Breath. Disp: 1 Inhaler Rfl: 0 traMADol (ULTRAM) 50 mg tablet Take 50 mg by mouth every 8 hours as needed. Disp: Rfl: predniSONE (DELTASONE) 20 mg tablet 1tablet by mouth daily for 3 days (Patient not taking: Reported on 12/02/2017 ) Disp: 3 tablet Rfl: 0 meloxicam (MOBIC) 15 mg tablet Take 1 tablet by mouth once daily. With food. (Patient not taking: Reported on 12/02/2017 ) Disp: 15 tablet Rfl: 0 albuterol HFA (PROAIR HFA) 90 mcg/actuation inhaler Inhale 2 Puffs as instructed every 4 hours as needed. (Patient not taking: Reported on 12/02/2017 ) Disp: 1 Inhaler Rfl: 0 ondansetron orally disintegrating (ZOFRAN ODT) 4 mg disintegrating tablet Take 1 tablet by mouth every 6 hours as needed for Nausea/Vomiting. (Patient not taking: Reported on 12/02/2017 ) Disp: 10 tablet Rfl: 0 Benzonatate (TESSALON) 200 mg capsule Take 200 mg by mouth three times daily as needed for Cough. (Patient not taking: Reported on 12/02/2017 ) Disp: 30 capsule Rfl: 0 colesevelam (WELCHOL) 625 mg tablet Take 1,875 mg by mouth three times daily. Disp: Rfl: sitaGLIPtin (JANUVIA) 100 mg tablet Take 100 mg by mouth once daily. Disp: Rfl: No current facility-administered medications for this visit. PAST SURGICAL HISTORY Procedure Laterality Date - COLONOSCOP W/ OR W/O [facility] SPEC 02/20/13 Colonoscopy repeat 6 months - COLONOSCOP W/ OR W/O [facility] SPEC 12/18/13 Colonoscopy repeat 1 month due to prep - COLONOSCOP W/ OR W/O [facility] SPEC 01/18/2014 Colonoscopy - LIGATE FALLOPIAN TUBE Tubal ligation - PAST SURGICAL HISTORY OF CTR Right hand - REMOVAL GALLBLADDER Cholecystectomy - REMOVAL OF TONSILS,<12 Y/O Tonsillectomy - VAGINAL HYSTERECTOMY 2014 complex hyperplasia with atypia FAMILY HISTORY Problem Relation Age of Onset - Arthritis Mother - Diabetes Father - Heart Father Social History Substance Use Topics - Smoking status: Current Every Day Smoker Packs/day: 0.30 Years: 30.00 Types: Cigarettes - Smokeless tobacco: Never Used Comment: 10 cig per day - Alcohol use No BP 138/86 Pulse 80 Temp 36.3 ?C (97.3 ?F) (Tympanic) Resp 18 Wt 129.7 kg (286 lb) LMP 04/29/2007 SpO2 97% BMI 46.87 kg/m? Objective Physical Exam Constitutional: She is oriented to person, place, and time and well-developed, well-nourished, and in no distress. HENT: Head: Normocephalic and atraumatic. Right Ear: Tympanic membrane, external ear and ear canal normal. Left Ear: Tympanic membrane, external ear and ear canal normal. Nose: Right sinus exhibits frontal sinus tenderness. Left sinus exhibits frontal sinus tenderness. Mouth/Throat: Uvula is midline, oropharynx is clear and moist and mucous membranes are normal. Eyes: Conjunctivae are normal. Pupils are equal, round, and reactive to light. Neck: Normal range of motion. Neck supple. Cardiovascular: Normal rate, regular rhythm and normal heart sounds. Pulmonary/Chest: Effort normal. No respiratory distress. She has no wheezes. She has no rales. Diminished breath sounds throughout. Musculoskeletal: Arms: Pt tender on palpation of the mid thoracic back and paraspinal muscles. Pain worsened with arm movement and bending/twisting. Lymphadenopathy: She has no cervical adenopathy. Neurological: She is alert and oriented to person, place, and time. Skin: Skin is warm and dry. Psychiatric: Affect and judgment normal. Nursing note and vitals reviewed. ASSESSMENT/PLAN: 1. Sinobronchitis - ICD9: 473.9, 490, ICD10: J32.9, J40 (primary diagnosis) - Will begin treatment with Doxycycline - Supportive care with plenty of fluids, rest, and analgesia prn. - Follow up in 3-5 days if symptoms persist or worsen. 2. Cough - ICD9: 786.2, ICD10: R05 CXR negative here. I will tx with doxycycline, tessalon, and prednisone . Also given albuterol MDI. Her back pain reproducible on palpation and ROM and with cough. I feel musculoskeletal. Prednisone will help with this and pt on chronic narcotics for back pain. Discussed with patient concerning symptoms to go to the emergency department or follow up here. Pt agreeable with this plan. - XR CHEST 2V FRONTAL/LAT Mary Evangelista PA-C XR CHEST 2V FRONTAL/LAT Observed: 12/02/2017 Status: F Source: [place] 12:15 PM [facility] REPOSITORY * * *Final Report* * * DATE OF EXAM: Dec 02 2017 12:15PM WOX [id number] - XR CHEST 2V FRONTAL/LAT / PROCEDURE REASON: Cough * * * * Physician Interpretation * * * * EXAMINATION: CHEST RADIOGRAPH (2 VIEW FRONTAL and LATERAL) Clinical History: Cough MQ: XC2_5 Comparison: None. RESULT: Lines, tubes, and devices: None. Lungs and pleura: No consolidation. No pleural effusion. No pneumothorax. Cardiomediastinal silhouette: Normal cardiomediastinal silhouette. Other: . IMPRESSION: No acute radiographic abnormality. Java Lead Architect: DANETTE Transcribe Date/Time: Dec 02 2017 12:17P Dictated by : JENNIFER REMY MD This examination was interpreted and the report reviewed and electronically signed by: JENNIFER REMY MD on Dec 02 2017 12:18PM EST [id number] Observed: 12/02/2017 Status: COMPLETED Source: [place] 12:05 PM [facility] REPOSITORY HNO ID: [id number] Author: Amy Purvis (Rt) Rajendra Azar Service: (none) Author Type: [employer] Type: Progress Notes Filed: 12/02/2017 12:15 PM Note Text: Radiology Service Progress Note PATIENT NAME: Jeannette Cruz DATE OF SERVICE: December 02, 2017 TIME: 12:05 PM PATIENT IDENTITY VERIFICATION COMPLETED USING TWO (2) METHODS: Patient confirmed name verbally and Date of . PATIENT GENDER DATA: Female. status: : No status: NO. PATIENT RELEVANT IMPLANT DATA REVIEWED: Not Applicable RADIOLOGY DEPARTMENT: General X-ray: Exam(s) Completed: Chest X-Ray PERIPHERAL IV DATA: Not applicable SIGNED BY: RT Jyothi December 02, 2017 12:05 PM CNOV Observed: 12/02/2017 Status: COMPLETED Source: [place] 11:45 AM [facility] REPOSITORY Office Visit (WSTR) JEANNETTE CRUZ ([id number]) 1955 F Date Time Provider Department 12/02/17 11:45 AM MARY EVANGELISTA) WSTR During your visit today, we recorded the following information about you: Temperature Pulse Respiration Blood pressure 97.3 degrees 80/minute 18/minute 138/86 Weight 129.7 kg Mary Evangelista PA-C 12/02/2017 1:20 PM Signed Subjective HPI Pt presents with cough, sinus pressure, congestion, for 10 days. The past couple days she has had some shortness of breath. She denies leg pain or swelling. No fevers, but she has had some chills. She states the coughing keeps her up at night. The coughing has been hurting her mid back as well. She is on oxycodone and gabapentin for chronic back pain. She denies hx of CHF or PE/DVT. No chest pain. She is a smoker. She denies known COPD. No recent travel or surgeries. Review of Systems Constitutional: Positive for chills. Negative for fever. HENT: Positive for congestion and sinus pain. Negative for sore throat. Eyes: Negative. Respiratory: Positive for cough, shortness of breath and wheezing. Negative for sputum production. Cardiovascular: Negative. Gastrointestinal: Negative. Genitourinary: Negative. Musculoskeletal: Positive for back pain. Skin: Negative. All other systems reviewed and are negative. PAST MEDICAL HISTORY Diagnosis Date - Abnormal uterine bleeding - Complex endometrial hyperplasia with atypia 2013 s/p hyst - Diabetes (HCC) Current Outpatient Prescriptions: oxyCODONE-acetaminophen 7.5-325 mg TbBO Take by mouth. Disp: Rfl: phentermine HCl (PHENTERMINE ORAL) Take by mouth. Disp: Rfl: gabapentin (NEURONTIN) 300 mg capsule Take 300 mg by mouth three times daily. Disp: Rfl: lovastatin (MEVACOR) 10 mg tablet Take 10 mg by mouth daily at bedtime. Disp: Rfl: lisinopril (ZESTRIL, PRINIVIL) 10 mg tablet Take 10 mg by mouth once daily. Disp: Rfl: LIRAGLUTIDE (VICTOZA 3-MARQUIS SUBCUTANEOUS) Inject subcutaneously. Disp: Rfl: metFORMIN 500 mg tablet Take 1,000 mg by mouth twice daily with meals. Disp: Rfl: predniSONE (DELTASONE) 20 mg tablet Take 1 tablet by mouth twice daily for 5 days. Disp: 10 tablet Rfl: 0 benzonatate (TESSALON PERLES) 100 mg capsule Take 2 capsules by mouth three times daily as needed. Disp: 30 capsule Rfl: 0 doxycycline (VIBRA-TABS) 100 mg tablet Take 1 tablet by mouth twice daily for 10 days. Disp: 20 tablet Rfl: 0 albuterol HFA (VENTOLIN HFA) 90 mcg/actuation inhaler Inhale 2 Puffs as instructed every 4 hours as needed for Wheezing/Shortness of Breath. Disp: 1 Inhaler Rfl: 0 traMADol (ULTRAM) 50 mg tablet Take 50 mg by mouth every 8 hours as needed. Disp: Rfl: predniSONE (DELTASONE) 20 mg tablet 1tablet by mouth daily for 3 days (Patient not taking: Reported on 12/02/2017 ) Disp: 3 tablet Rfl: 0 meloxicam (MOBIC) 15 mg tablet Take 1 tablet by mouth once daily. With food. (Patient not taking: Reported on 12/02/2017 ) Disp: 15 tablet Rfl: 0 albuterol HFA (PROAIR HFA) 90 mcg/actuation inhaler Inhale 2 Puffs as instructed every 4 hours as needed. (Patient not taking: Reported on 12/02/2017 ) Disp: 1 Inhaler Rfl: 0 ondansetron orally disintegrating (ZOFRAN ODT) 4 mg disintegrating tablet Take 1 tablet by mouth every 6 hours as needed for Nausea/Vomiting. (Patient not taking: Reported on 12/02/2017 ) Disp: 10 tablet Rfl: 0 Benzonatate (TESSALON) 200 mg capsule Take 200 mg by mouth three times daily as needed for Cough. (Patient not taking: Reported on 12/02/2017 ) Disp: 30 capsule Rfl: 0 colesevelam (WELCHOL) 625 mg tablet Take 1,875 mg by mouth three times daily. Disp: Rfl: sitaGLIPtin (JANUVIA) 100 mg tablet Take 100 mg by mouth once daily. Disp: Rfl: No current facility-administered medications for this visit. PAST SURGICAL HISTORY Procedure Laterality Date - COLONOSCOP W/ OR W/O [facility] SPEC 02/20/13 Colonoscopy repeat 6 months - COLONOSCOP W/ OR W/O [facility] SPEC 12/18/13 Colonoscopy repeat 1 month due to prep - COLONOSCOP W/ OR W/O [facility] SPEC 01/18/2014 Colonoscopy - LIGATE FALLOPIAN TUBE Tubal ligation - PAST SURGICAL HISTORY OF CTR Right hand - REMOVAL GALLBLADDER Cholecystectomy - REMOVAL OF TONSILS,<12 Y/O Tonsillectomy - VAGINAL HYSTERECTOMY 2014 complex hyperplasia with atypia FAMILY HISTORY Problem Relation Age of Onset - Arthritis Mother - Diabetes Father - Heart Father Social History Substance Use Topics - Smoking status: Current Every Day Smoker Packs/day: 0.30 Years: 30.00 Types: Cigarettes - Smokeless tobacco: Never Used Comment: 10 cig per day - Alcohol use No BP 138/86 Pulse 80 Temp 36.3 ?C (97.3 ?F) (Tympanic) Resp 18 Wt 129.7 kg (286 lb) LMP 04/29/2007 SpO2 97% BMI 46.87 kg/m? Objective Physical Exam Constitutional: She is oriented to person, place, and time and well-developed, well-nourished, and in no distress. HENT: Head: Normocephalic and atraumatic. Right Ear: Tympanic membrane, external ear and ear canal normal. Left Ear: Tympanic membrane, external ear and ear canal normal. Nose: Right sinus exhibits frontal sinus tenderness. Left sinus exhibits frontal sinus tenderness. Mouth/Throat: Uvula is midline, oropharynx is clear and moist and mucous membranes are normal. Eyes: Conjunctivae are normal. Pupils are equal, round, and reactive to light. Neck: Normal range of motion. Neck supple. Cardiovascular: Normal rate, regular rhythm and normal heart sounds. Pulmonary/Chest: Effort normal. No respiratory distress. She has no wheezes. She has no rales. Diminished breath sounds throughout. Musculoskeletal: Arms: Pt tender on palpation of the mid thoracic back and paraspinal muscles. Pain worsened with arm movement and bending/twisting. Lymphadenopathy: She has no cervical adenopathy. Neurological: She is alert and oriented to person, place, and time. Skin: Skin is warm and dry. Psychiatric: Affect and judgment normal. Nursing note and vitals reviewed. ASSESSMENT/PLAN: 1. Sinobronchitis - ICD9: 473.9, 490, ICD10: J32.9, J40 (primary diagnosis) - Will begin treatment with Doxycycline - Supportive care with plenty of fluids, rest, and analgesia prn. - Follow up in 3-5 days if symptoms persist or worsen. 2. Cough - ICD9: 786.2, ICD10: R05 CXR negative here. I will tx with doxycycline, tessalon, and prednisone . Also given albuterol MDI. Her back pain reproducible on palpation and ROM and with cough. I feel musculoskeletal. Prednisone will help with this and pt on chronic narcotics for back pain. Discussed with patient concerning symptoms to go to the emergency department or follow up here. Pt agreeable with this plan. - XR CHEST 2V FRONTAL/LAT Mary R Athy, PA-C Referring Provider: SELF [200] Allergies As of Date: 12/02/2017 Noted Allergy Reaction CELEBREX (CELECOXIB) 10/21/2015 2 - Rash Date Reviewed: 12/02/2017 Reviewed by: Luana Motta Ma - Fully Assessed Reason for Visit: Chest Congestion [236] Cmt: cough and shortness of breath x 10 days Primary Visit Diagnosis:Sinobronchitis [J32.9, J40] Other Visit Diagnosis:Cough [R05] Order(s):XR CHEST 2V FRONTAL/LAT [1678672] Order #: [id number] FUTURE predniSONE (DELTASONE) 20 mg tabletTake 1 tablet by mouth twice daily for 5 days.Disp: 10 tabletRfl: 0 benzonatate (TESSALON PERLES) 100 mg capsuleTake 2 capsules by mouth three times daily as needed.Disp: 30 capsuleRfl: 0 doxycycline (VIBRA-TABS) 100 mg tabletTake 1 tablet by mouth twice daily for 10 days.Disp: 20 tabletRfl: 0 albuterol HFA (VENTOLIN HFA) 90 mcg/actuation inhalerInhale 2 Puffs as instructed every 4 hours as needed for Wheezing/Shortness of Breath.Disp: 1 InhalerRfl: 0 Prescriptions as of 12/02/2017 Sig: OXYCODONE 7.5 MG-ACETAMINOPHE* Take by mouth. PHENTERMINE ORAL Take by mouth. GABAPENTIN 300 MG CAPSULE Take 300 mg by mouth three ti* LOVASTATIN 10 MG TABLET Take 10 mg by mouth daily at * LISINOPRIL 10 MG TABLET Take 10 mg by mouth once cally* VICTOZA 3-MARQUIS SUBCUTANEOUS Inject subcutaneously. METFORMIN 500 MG TABLET Take 1,000 mg by mouth twice * PREDNISONE 20 MG TABLET Take 1 tablet by mouth twice * BENZONATATE 100 MG CAPSULE Take 2 capsules by mouth thre* DOXYCYCLINE HYCLATE 100 MG TA* Take 1 tablet by mouth twice * ALBUTEROL SULFATE HFA 90 MCG/* Inhale 2 Puffs as instructed * TRAMADOL 50 MG TABLET Take 50 mg by mouth every 8 h* PREDNISONE 20 MG TABLET 1tablet by mouth daily for 3 * Patient not taking: Reported on 12/02/2017 MELOXICAM 15 MG TABLET Take 1 tablet by mouth once d* Patient not taking: Reported on 12/02/2017 ALBUTEROL SULFATE HFA 90 MCG/* Inhale 2 Puffs as instructed * Patient not taking: Reported on 12/02/2017 ONDANSETRON 4 MG DISINTEGRATI* Take 1 tablet by mouth every * Patient not taking: Reported on 12/02/2017 BENZONATATE 200 MG CAPSULE Take 200 mg by mouth three ti* Patient not taking: Reported on 12/02/2017 COLESEVELAM 625 MG TABLET Take 1,875 mg by mouth three * SITAGLIPTIN 100 MG TABLET Take 100 mg by mouth once joshua* Problem List As Of Date 12/02/2017 Noted Resolved PMB (postmenopausal bleeding) [N95.0] INVALID FOR*07/03/2013 Thickened endometrium [R93.8] INVALID FOR*07/03/2013 Complex endometrial hyperplasia without atypia *INVALID FOR*07/03/2013 Prescriptions ordered this encounter Disp Refills Start End PREDNISONE 20 MG TABLET 10 t* 0 12/02/2017 12/07/2017 Route: ORAL Sig: Take 1 tablet by mouth twice daily for 5 days. BENZONATATE 100 MG CAPSULE 30 c* 0 12/02/2017 Route: ORAL Sig: Take 2 capsules by mouth three times daily as needed. DOXYCYCLINE HYCLATE 100 MG TABLET 20 t* 0 12/02/2017 12/12/2017 Route: ORAL Sig: Take 1 tablet by mouth twice daily for 10 days. ALBUTEROL SULFATE HFA 90 MCG/ACTUATI* 1 In* 0 12/02/2017 Route: INHALATION Sig: Inhale 2 Puffs as instructed every 4 hours as needed for Wheezing/Shortness of Breath. Encounter Status:Closed by MARY EVANGELISTA PA-C on 12/02/17 MRSA WOUND DNA BY Collected: 11/14/2017 Status: F Source: [place] PCR 4:04 PM [facility] REPOSITORY Order Comment: Specimen Source? LEFT SMALL TOE TYPE CODE TESTS RESULT OUT OF RANGE REFERENCE UNITS LAB L8200.1100 Negative Normal MRSA Negative RESULT LAB L8200.1150 Negative Normal SA RESULT NEGATIVE Performed By: #### L8200.1075 #### [facility] [address]. [place], [place], [id number] DOWNTIME REPORT Observed: 10/16/2017 Status: F Source: [place] 2:06 PM [facility] REPOSITORY [facility] Medical Records Department [address] [facility] [place] [address] Downtime Report MR#: [id number] Acct: [id number] Name: JEANNETTE CRUZ Rep #: [id number] : 1955 62 From: Mark Alves MD PCP: Joseph Adrian DO Status: [facility] This patient was seen during an EMR downtime September 30, 2017 - October 07, 2017. This patient may have a combination of paper and electronic documentation or all paper documentation. All documentation is viewable within the e-chart portion of [facility] for each patient visit. HAND MIN 3 VIEWS Observed: 06/11/2017 Status: F Source: [place] 9:53 AM [facility] REPOSITORY [facility] Imaging Services [address] [place] [address] Hand Min 3 Views MR#: [id number] Acct: [id number] Name: JEANNETTE CRUZ Rep #: [id number] : 1955 F 61 From: Kenny Head MD PCP: Joseph Adrian DO Status: REG CLI Study: Hand Min 3 Views Date of Exam: 06/11/17 Exam# [id number] Ordering Dr: Joseph Adrian DO STUDY: X-RAY - RIGHT HAND REASON FOR EXAM: Female, 61 years old. Second metacarpal pain TECHNIQUE: 3 view(s) of the hand. COMPARISON: None. FINDINGS: Normal radiocarpal articulation. Normal distal radioulnar joint. Normal visualized carpal bones. Normal carpal articulations Normal carpometacarpal articulation of the thumb. Normal second through fifth carpometacarpal joints. There are mild osteoarthritic changes of the first and second metacarpophalangeal joints, first interphalangeal joint, second, third, and fifth DIP joints. There are several tiny soft tissue calcifications lateral to the second metacarpal head. RAD/Hand Min 3 Views IMPRESSION: Mild diffuse osteoarthritic changes as reported above. Electronically Signed: Kenny Head MD at 22:15 EST , Service support , CC: Joseph Adrian DO Java Lead Architect: Signed L/S SPINE MIN 4 Observed: 06/11/2017 Status: F Source: [place] VIEWS 9:53 AM [facility] REPOSITORY [facility] Imaging Services [address] [place] [address] L/S Spine Min 4 Views MR#: [id number] Acct: [id number] Name: JEANNETTE CRUZ Rep #: [id number] : 1955 F 61 From: Kenny Head MD PCP: Joseph Adrian DO Status: REG CLI Study: L/S Spine Min 4 Views Date of Exam: 06/11/17 Exam# [id number] Ordering Dr: Joseph Adrian DO STUDY: X-RAY - LUMBAR SPINE REASON FOR EXAM: Female, 61 years old. Chronic low back pain radiating down right leg TECHNIQUE: 5 view(s) of the lumbar spine were obtained. COMPARISON: Prior study of 11/15/2009 FINDINGS: Normal lumbar lordosis. There is a mild mid lumbar levoscoliosis. There is a normal alignment of the vertebrae. There is diffuse endplate spondylosis. There is multi-level degenerative disc disease with multi-level disc space narrowing. There is no demonstrated fracture. There are bilateral degenerative facet changes from the L3-4 through L5-S1 levels. The soft tissue structures are unremarkable. RAD/L/S Spine Min 4 Views IMPRESSION: Degenerative changes of the spine, as detailed above. The degree of degenerative disease has slightly increased in severity in the interval. Electronically Signed: Kenny Head MD at 22:21 EST , Service support , CC: Joseph Adrian DO Java Lead Architect: Signed ALLERGIES ALLERGIES DATE TYPE / NAME / CODE REACTION SEVERITY SOURCE CODE 05/18/2018 Drug atorvastatin Unknown Unknown Nathan Allergy/41 calcium/[id number] Community [id number]( (RXNORM) [facility] CT) Repository 05/18/2018 Drug sitagliptin Swelling Unknown Nathan Allergy/41 phosphate/[id number] Community [id number]( 91(RXNORM) [facility] CT) Repository 05/18/2018 Drug valsartan/Q5045030 Other Unknown [place] Allergy/41 79(RXNORM) Community [id number]([facility]ME CT) Repository 05/18/2018 Drug celecoxib/[id number] Rash Unknown [place] Allergy/41 31(RXNORM) On License Of [facility] [id number]([facility] CT) Repository 10/21/2015 DRUG CELECOXIB RASH [address] [id number]( Repository [facility] CT) 10/21/2015 DRUG SITAGLIPTIN ANAPHYLAXIS [address] [id number]( Repository [facility] CT) ENCOUNTERS ENCOUNTERS ADMIT/DISCHARGE ACCOUNT ADMITTING ENCOUNTER LOCATION SOURCE NUMBER CLASS 05/24/2018 [id number] Ambulatory [facility] ing:CT Repository 05/18/2018/05/18/19 [id number] Emergency [address] ing:ED Repository 05/12/2018/05/12/19 [id number] Ambulatory [address] Repository 05/12/2018/05/13/19 [id number] Ambulatory [address] Repository 03/11/2018 [id number] Ambulatory [facility] ing:MTLAB Repository 02/07/2018/02/08/20 [id number] Ambulatory [address] ing:PT Repository 12/27/2017 [id number] Ambulatory [facility] ing:OPBI Repository 12/02/2017/12/03/19 [id number] Ambulatory [address] Repository 12/02/2017/12/04/19 [id number] Ambulatory [address] Repository 11/14/2017 [id number] Ambulatory [facility] ing:LABSPEC Repository 10/01/2017/10/02/19 [id number] Emergency [place] ing:ED Repository 06/11/2017 [id number] Ambulatory [facility] ing:MTRAD Repository PAYERS PAYERS ENCOUNTER GUARANTOR PAYER SUBSCRIBER SOURCE 05/24/2018 JEANNETTE Jha Primary JEANNETTE Jha [place] [id number] Insurance:ANTHEMPolic MULLINSDOB: Community [address] y Number: [id number] [id number] Repository [address]Yha: (330) Date:8231-07-21[phone] () [address], [place] [address]LK: 05/24/2018 Secondary NOT GIVENUNK Nathan Insurance:SELF PAY [facility] Number: Effective Repository Date:2018-05-21 05/18/2018 JEANNETTE M Primary JEANNETTE Jha [place] [id number] Insurance:ANTHEMPolic MULLINSDOB: Community [address] y Number: [id number], [place] [id number] Repository [address]Byu: (330) Date:7086-53-41WB [phone] () [id number], [place] [address]BX: 05/18/2018 Secondary NOT GIVENUNK [place] Insurance:SELF PAY [facility] Number: Effective Repository Date:2018-05-18 03/11/2018 Jeannette M Primary Jeannette Jha [place] [id number] Insurance:ANTHEMPolic MullinsDOB: Community [address] y Number: [id number], [place] [id number] Repository [address]Xzx: (330) Date:5465-81-50AY [phone] () [address]209[address]AFAA, [place] [address]AB: 03/11/2018 Secondary NOT GIVENUNK [place] Insurance:SELF PAY [facility] Number: Effective Repository Date:2018-03-11 02/07/2018 Jeannette Yudelka Primary Jeannette Jha Nathan [id number] Insurance:ANTHEMPolic MullinsDOB: Community [address] y Number: [id number], [place] [id number] Repository [address]Ycf: (330) Date:5239-13-74JZ [phone] () [id number], [place] [address]HD: 02/07/2018 Secondary NOT GIVENUNK Nathan Insurance:SELF PAY [facility] Number: Effective Repository Date:2018-01-31 12/27/2017 Jeannette Jha Primary Jeannette M Nathan [id number] Insurance:ANTHEMPolic MullinsDOB: Community [address] y Number: [id number], [place] [id number] Repository [address]Fak: (330) Date:5470-70-57CU [phone] () [address]29[address]NYRFPSL, [place] [address]JC: 12/27/2017 Secondary NOT GIVENUNK [place] Insurance:SELF PAY [facility] Number: Effective Repository Date:2017-12-10 11/14/2017 Jeannette Yudelka Primary Jeannette M [place] [id number] Insurance:ANTHEMPolic MullinsDOB: Community [address] y Number: [id number], [place] [id number] Repository [address]Rhc: (330) Date:9578-86-96KW [phone] () [address]644[address]XONKBHI, [place] [address]TB: 11/14/2017 Secondary NOT GIVENUNK [place] Insurance:SELF PAY [facility] Number: Effective Repository Date:2017-11-14 10/01/2017 Jeannette M Primary Jeannette M Nathan [id number] Insurance:ANTHEMPolic MullinsDOB: Community [address] y Number: [id number], [place] [id number] Repository [address]Scu: (330) Date:0434-84-92JP [phone] () [address]RL[place], [place] [address]IX: 10/01/2017 Secondary NOT GIVENUNK [place] Insurance:SELF PAY [facility] Number: Effective Repository Date:2017-10-01 06/11/2017 Jeannette [id number] Insurance:ANTHEMPolic KathleenOB: Community [address] y Number: [id number], [place] [id number] Repository [address]Ant: 330) Date:7915-69-29IU [phone] () 1020[address]XKPQEWZ, [place] [address]AC: 06/11/2017 Secondary NOT GIVENJACQUELYN Evans Insurance:SELF PAY [facility] Number: Effective Repository Date:2017-06-11
== END 2018-05-18 20:18 | disposition home or self-care (01) ==
LOC: ED 19:16
PROVIDERS: Emergency Provider Emergency Medicine; Family Provider Family Medicine; PCP Family Medicine
DX: J06.9 Acute upper respiratory infection, unspecified (principal); B37.0 Candidal stomatitis; E11.9 Type 2 diabetes mellitus without complications; I10 Essential (primary) hypertension; Z79.899 Other long term (current) drug therapy; F17.200 Nicotine dependence, unspecified, uncomplicated
CPT/HCPCS: 71046; 80048; 84484; 85025; 87804; 93005; 94640; 99284; A4216

== ENCOUNTER → 2018-05-24 08:36 | Outpatient (CLI) | payer BC, SELFPAY ==
[2018-05-18 17:24] VITALS: BMI 48.2
--- NOTE | 2018-05-24 08:38 | CT_ITS ---
STUDY: LOW DOSE CT LUNG CANCER SCREENING REASON FOR EXAM: Female, 62 years old. 47 pack-year history, screening exam RADIATION DOSAGE (If Supplied By Facility): CTDIvol = ( 4.02 ) mGy, DLP = ( 129.89 ) mGycm TECHNIQUE: No contrast was administered. Low dose technique was utilized (average mAS-38 and kVp 120). 1.25 mm axial source images with a slice interval of 1.25-mm were reconstructed in lung windows. 2.5 mm axial source images with a slice interval of 2.5-mm were reconstructed in lung windows. 5.0 mm axial source images with a slice interval of 5.0-mm were reconstructed in soft tissue windows. Nodule measured using lung windows on PACS and/or independent workstation with automated measurement of minimum and maximum diameter. Nodule measurement reported as average diameter rounded to the nearest whole number. Growth is defined as an increase ins size of greater than 1.5 mm. COMPARISON: None. NODULES: Total lung nodules (excluding granulomas): 0 Emphysema: Not available Endobronchial lesion: None Aorta: Not aneurysmal. No atherosclerosis. Heart: Normal heart size. Pulmonary artery: Unremarkable for unenhanced study. Mediastinal nodes: No mediastinal dominant carolyn mass. Small, nonspecific mediastinal lymph nodes measure less than 7 mm in short axis. Other chest and abdominal findings: Adrenal glands not enlarged. There are degenerative changes of the thoracic spine. CT/Low Dose CT Lung Screening IMPRESSION: Lung-RADS category 1 - Continue annual screening with LDCT in 12 months. IMPORTANT NOTES FOR USE: ACR Lung-RADS Version 1.0 Assessment Categories Release Date: August 24, 2013 Category: Coded 0-4 bases on nodule(s) with highest degree of suspicion. Negative screen is defined as categories 1 and 2; a positive screen is defined as categories 3 and 4. Category 3 and 4A nodules that are unchanged on interval CT should be coded as category 2, and individuals returned to screening in 12 months. Category 4X: Category 3 or 4 nodules with additional imaging findings that increase the suspicion of lung cancer, such as spiculation, GGN that doubles in size in 1 year, enlarged lymph notes, etc. Category Modifiers: S (significant finding unrelated to lung cancer) and C (prior history of treated lung cancer) may be added to the 0-4 Lung-RADS Electronically Signed: Hemal Garland MD at 23:44 EST , Service support ,
== END ==
LOC: CT 08:37
PROVIDERS: Family Provider Family Medicine; PCP Family Medicine; Referring Provider Family Medicine; Visit Provider Family Medicine
DX: Z12.2 Encounter for screening for malignant neoplasm of respiratory organs (principal); Z87.891 Personal history of nicotine dependence
CPT/HCPCS: G0297

== ENCOUNTER → 2018-06-23 10:32 | Outpatient (CLI) | payer BC, SELFPAY ==
[2018-05-18 17:24] VITALS: BMI 48.2
[2018-06-23 13:14] LABS: Hemoglobin A1c 8.2 % (4.2-6.3)
== END ==
PROVIDERS: Family Provider Family Medicine; PCP Family Medicine; Visit Provider Family Medicine
DX: E11.40 Type 2 diabetes mellitus with diabetic neuropathy, unspecified (principal)
CPT/HCPCS: 36415; 83036

== ENCOUNTER 2019-02-23 09:30 | Outpatient (RCR) | payer BC, SELFPAY ==
[2018-05-18 17:24] VITALS: BMI 48.2
--- NOTE | 2019-01-22 11:35 | HP.PTEVAL_ITS ---
Patient's Visit Information GOLDIE TAPIA is a 63 year old F referred to Physical Therapy by Jake Washington MD with a diagnosis of BPPV. Date of Evaluation: 01/22/19 Physical Therapist: Jake Lawton, TUYET, OCS, CSCS - Visit Plan Frequency: 1x/Week Duration: 2-4 Weeks Plan: weekly as needed for balance checks, postional treatments adn exercises - Subjective Findings: Had vertigo early in the year and treated with therapy which helped. Came back 6 monthslater. Got dizzy 3 weeks ago sitting up in bed lasting a few seconds. That lasted a week of intermittent dizzyness. Went to ENT and sent for therapy. Moving slowly for a week getting up. Last dizzy spell was 2+ weeks ago and activities are normal. Avoiding ladder at work. 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 Did not miss work. Wobbles but no falls, this is normal for her. Steps at home without a problem last two weeks. Has DM and neuropathy. Boles in feet with stance. - Objective Walks normal and trasnfers normal today adn I. C/S aROM WFL and without pain. UE AROM WNL. Tires easily with 300 feet of walking adn one flight steps adn feet start to hurt. Good AROM in ankles. - L hallpike. + r hallpike for up torsional nystagmus of 7 seconds. Treated with Melinda and then - HD test. - Balance Scores Functional Gait Assessment Score: 27 % Disability: 10.0000 CATSIB Score (Max score 120 seconds): 120 - Goals Goal 1:: Abolish dizzyness with head movements and HD testing. Goal Time Frame: 2-4 Weeks Goal 2:: Pt feel 100% back to normal and < 10% disablity on DHI Goal Time Frame: 2-4 Weeks - Rehabilitation Potential Physical Therapy Diagnosis: BPPV Rehabilitation Potential: Good - Anticipated Interventions Patient/Client Instruction: Educate patient on: Condition, Plan of Care For the Purpose of:: To increase tolerance to activity/condition/position, To improve safety with gait Therapeutic Exercise to Include: Balance training Comment: positional treatments adn ex For the Purpose of:: To increase tolerance to activity/condition/position, To improve ability of physical actions for home/community/work/leisure, To improve safety with gait Thank you for the opportunity to evaluate your patient. For Medicare and Medicare HMO plans, please review the plan of care and approve it. It will need to be FAXED BACK to us at [phone] for Medicare purposes. For Medicare only, by signing this I certify the plan of care. Please let me know if there are questions or concerns regarding this plan of care. Physician Signature: Date:
--- NOTE | 2019-02-11 09:47 | HP.PTREVAL_ITS ---
Jake Washington MD, It has been my pleasure to treat GOLDIE TAPIA over the last 4 visits for BPPV. Please see the progress note below for an update on the physical therapy plan of care! Subjective: Had a spinning incident last Saturday in a machine. She jerked real hard prior to this incident. Spun for 5 minutes. [place] pretty normal the rest of the night. Weekend was OK. Saturday leaned when sitting and kept going falling into the tub. Dr. Washington took her off work for two weeks. Off work til the , See him Mar 16. [place] pretty normal since Saturday and does all housework. Objective/Function: + R hallpike letty up torsional 6 seconds, treated wtih Marshall then - test again today. Symptoms unusually gone for a few days then return, emphasized to patient today to minimize head movement today and obey post marshall precautions. Resume BD tomorrow. Call if dizzyness returns. Plan Plan: Increase to 2x/week due to patient unusual up and down of symptoms and being off work to keep a closer eye on her positional and check MSQ if needed. Goals Goal 1:: Abolish dizzyness with head movements and HD testing. Goal Time Frame: 2-4 Weeks Goal 2:: Pt feel 100% back to normal and < 10% disablity on DHI Goal Time Frame: 2-4 Weeks Anticipated Interventions Patient/Client Instruction: Educate patient on: Condition, Plan of Care For the Purpose of:: To increase tolerance to activity/condition/position, To improve safety with gait Therapeutic Exercise to Include: Balance training Comment: positional treatments adn ex For the Purpose of:: To increase tolerance to activity/condition/position, To improve ability of physical actions for home/community/work/leisure, To improve safety with gait Please do not hesitate to contact me at [phone] by phone or if you have questions or concerns regarding this new plan of care! Sincerely, Jake Lawton, DPT, OCS, CSCS
--- NOTE | 2019-02-23 09:49 | HP.PTDCSUM ---
HP - PT D/C Summary It has been my pleasure to treat GOLDIE TAPIA under orders from Jake Washington MD, for the diagnosis of BPPV for a total of 6 visit(s). Discharge Date: 02/23/19 Please see the following information for a summary of their discharge status. - Subjective Subjective: Ding good for the last week. No dizzyness. Emili ttempt to go back to wrok tonight adn doesn't foresee any problems. No dizzy spells in a while. To doctor in [place]. Moving all over and unabe to set off dizzyness. Cleaned house adn trick or treat without problem. - Overall Improvement % Improvement: 100 - Objective Objective/Function: - B hallpike , - roll test. - bend and then look up. - 180 degree turn. - head nods turns. Brianna balance walking and trasnfrrring well. - VOR adn VORx2 horiz and vertical. - Goals Goal 1:: Abolish dizzyness with head movements and HD testing. Goal Progress: Goal Met Goal 2:: Pt feel 100% back to normal and < 10% disablity on DHI Goal Progress: Goal Met - Plan Plan: d/c - D/C Information Discharge Comments: Pt doing very well and will return to wrok tonight. No problems at home. If there are questions or concerns regarding this patient's physical therapy, please feel free to call me at [phone]. Thank you for the referral of this patient. Sincerely, Jake Lawton, DPT, OCS, CSCS
== END 2019-02-23 19:00 | disposition home or self-care (01) ==
LOC: PT 09:30
PROVIDERS: Family Provider Family Medicine; PCP Family Medicine; Referring Provider Otolaryngology; Visit Provider Otolaryngology
DX: H81.10 Benign paroxysmal vertigo, unspecified ear (principal)
CPT/HCPCS: 97161; 97530

== ENCOUNTER → 2019-03-10 15:01 | Outpatient (CLI) | payer BC, SELFPAY ==
[2018-05-18 17:24] VITALS: BMI 48.2
[2019-03-10 17:15] LABS: Absolute Lymphocyte Count 2.42 X10^3/uL (0.83-4.51); Absolute Neutrophil Count 8.7 X10^3/uL (2.0-7.7); Basophil# 0.05 X10^3/uL; Basophil% 0.4 % (0-1); Eosinophil# 0.11 X10^3/uL; Eosinophils% 0.9 % (0-5); Hematocrit 48.3 % (37-47); Hemoglobin 15.4 g/dL (12.0-15.0); Lymphocyte # 2.42 X10^3/ul (4.0); Lymphocyte % 20.1 % (19-41); Mean Corp Hgb Conc 31.9 g/dL (32-36); Mean Corpuscular Hgb 28.8 pg (27.0-32.0); Mean Corpuscular Volume 90.4 fL (81-99); Mean Platelet Vol. 10.9 fl (6.2-12.0); Monocyte# 0.69 X10^3/uL; Monocyte% 5.7 % (0-10); NRBC Flagged by Analyzer 0 % (0-5); Neutrophil # 8.69 X10^3/uL (2.7-7.7); Neutrophil % 72.4 % (47-70); Platelet Count 215 K/mm3 (150-450); RBC Distribution Width CV 14.2 % (11.6-14.6); Red Blood Count 5.34 M/mm3 (4.2-5.4)
[2019-03-10 17:37] LABS: ALB/GLOB Ratio 0.8 RATIO (0.9-2.4); AST(SGOT) 17 U/L (15-37); Alanine Aminotransfer ALT/SGPT 28 U/L (13-56); Albumin, Serum 3.4 g/dL (3.2-5.0); Alkaline Phosphatase 118 U/L (45-117); Anion Gap 6 (5-15); BUN 13 mg/dL (7-18); BUN/Creat Ratio 15.6 RATIO (10-20); Calcium,Total 8.8 mg/dL (8.5-10.1); Chloride 104 mmol/L (98-107); Cholesterol 223 mg/dL (200); Creatinine, Serum 0.84 mg/dL (0.55-1.02); EST Glomerular Filtration Rate 73 mL/min (>60); Est Glom Filt Rate - Afr Amer 89 mL/min (>60); Globulin 4.4 g/dL (2.2-4.2); Glucose 107 mg/dL (74-106); High Density Lipoprotein 48 mg/dL; Potassium 3.7 mmol/L (3.5-5.1); Protein, Total 7.8 g/dL (6.4-8.2); Sodium Level 138 mmol/L (136-145); Thyroid Stim Hormone (TSH) 1.38 uIU/mL (0.358-3.74); Triglycerides 142 mg/dL; Very Low Density Lipoprotein 28 mg/dL (5-40)
[2019-03-10 18:21] LABS: Hemoglobin A1c 7.3 % (4.2-6.3)
== END ==
LOC: LAB.FUTURE 15:02 → BFHLAB 15:14
PROVIDERS: Family Provider Family Medicine; PCP Family Medicine; Visit Provider Family Medicine
DX: Z00.00 Encounter for general adult medical examination without abnormal findings (principal); E11.40 Type 2 diabetes mellitus with diabetic neuropathy, unspecified
CPT/HCPCS: 36415; 80053; 80061; 83036; 84443; 85025

== ENCOUNTER 2019-11-20 08:04 | Day surgery (SDC) | payer BC, SELFPAY ==
[2018-05-18 17:24] VITALS: BMI 48.2
[2019-11-20] VITALS (7 sets, daily range): BP systolic 120–162; BP diastolic 63–79; PULSE 62–83; RESP 14–18; TEMP 36.5–37.1; O2SAT 95–98; BMI 46.0
--- NOTE | 2019-11-20 | VOCOB_PTH ---
PATIENT: GOLDIE TAPIA LOC: [facility] [place] U#:[id number] AGE/SX: 64/F ROOM: RE11/20/[address]: Dr. Jake Washington MD : 1955 BED: DIS: 11/20/2019 SPEC #: [id number] RECD: 11/20/19 13:35 STATUS: ANA REMiguelito #: [id number] MEÑO: 11/20/19 00:[address]: Jake Washington DEPT: SURGICAL PATHOLOGY RECD BY: Jamari Cyr ENTERED: 11/20/19 13:35 SP TYPE: VOCAL CORD OTHR DR: Dr. Joseph Adrian, DO Tissues: Vocal cord, NOS Procedures: Surgery Specimen Level IV HEADER OPERATION: Laryngoscopy, direct with excision of tumor PRE-OP DIAGNOSIS: Polyp of vocal cord and larynx TISSUE SUBMITTED: Right vocal cord polyp MICROSCOPIC DIAGNOSIS Right vocal cord lesion, biopsy: Benign vocal cord polyp. AM:jayla 11/23/19 MICROSCOPIC DESCRIPTION Slides are reviewed. GROSS DESCRIPTION Received in fixative is one container labeled with the patient's name and designated right vocal cord polyp. The specimen consists of a piece of parnell soft tissue measuring 1 x 0.3 x 0.1 cm. The specimen is totally submitted in one cassette. / SJ:jayla 11/20/19 TC:5 CPT: 38409
--- NOTE | 2019-11-20 08:18 | EKG12_ITS ---
Test Reason : PRE OP Blood Pressure : / mmHG Vent. Rate : 069 BPM Atrial Rate : 069 BPM P-R Int : 218 ms QRS Dur : 082 ms QT Int : 400 ms P-R-T Axes : 022 003 007 degrees QTc Int : 428 ms Sinus rhythm with 1st degree A-V block Low voltage QRS Septal infarct (cited on or before 27-FEB-2017) Abnormal ECG When compared with ECG of 18-MAY-2018 17:56, No significant change was found Confirmed by JENNIFER MERCHANT ([id number]), assignment desk editor VERNA FOX ([id number]) on 11/23/2019 12:44:33 PM Referred By: Jake Washington Confirmed By:JENNIFER MERCHANT
[2019-11-20] MEDS: Lactated Ringers 1,000 ML 100 ML IV (08:44)
[2019-11-20 09:36] LABS: Bedside Glucose 165 mg/dL (70-110)
[2019-11-20 09:49] LABS: Anion Gap 3 (5-15); BUN 13 mg/dL (7-18); BUN/Creat Ratio 16.3 RATIO (10-20); Calcium,Total 8.4 mg/dL (8.5-10.1); Chloride 108 mmol/L (98-107); EST Glomerular Filtration Rate 77 mL/min (>60); Est Glom Filt Rate - Afr Amer 93 mL/min (>60); Estimated Creatinine Clearance 63.93 ml/min; Glucose 170 mg/dL (74-106); Sodium Level 138 mmol/L (136-145)
[2019-11-20] MEDS: Oxymetazoline 0.05% 1 SPRAY SPRAY.BTL 15 SPRAY (10:57)
[2019-11-20] MEDS: Lidocaine 4% 50 ML Bottle (11:10)
--- NOTE | 2019-11-20 11:12 | DCINST_ITS ---
You will use the following diet at home:: No restrictions Discharge Activity: Return to Normal Activity Call your doctor if your incision/area has: Increased Pain/ Swelling Call your doctor if you observe: Fever of 101 or Higher, Shortness of breath, Uncontrolled pain Allergies/Adverse Reactions: Allergies celecoxib [From Celebrex] Allergy (Verified 11/20/19 08:12) Rash sitagliptin phosphate [From Januvia] Allergy (Verified 11/20/19 08:12) Swelling atorvastatin calcium [From Lipitor] Adverse Reaction (Verified 11/20/19 08:12) Unknown valsartan [From Diovan] Adverse Reaction (Verified 11/20/19 08:12) Other Medications to take at Discharge Multivit,Calc,Mins/Iron/Folic [Women's Daily Formula Caplet] 1 each PO DAILY 03/17/15 Liraglutide [Victoza 2-Grabiel] 1.8 mg SQ DAILY 05/25/16 Lisinopril [Zestril] 10 mg PO QHS 02/27/17 Lovastatin [Mevacor] 10 mg PO QHS 02/27/17 Glimepiride [Amaryl] 1 mg PO DAILY 11/12/19 Ibuprofen [Ibu] 600 mg PO PRN PRN 11/12/19 Metformin HCl [Glucophage] 500 mg PO 1500 11/12/19 Oxycodone HCl/Acetaminophen [Oxycodon-Acetaminophen 7.5-325] 1 ea PO BID 11/12/19 Orders to be completed after discharge: CORONAVIRUS 19, REGINA SCREEN Time Frame: 11/13/19, Facility: [facility], Location: Laboratory Primary Care Physician: Joseph Adrian DO [Primary Care Provider] - Test Results: Test results from this visit will be discussed in further detail at your follow- up appointment, if applicable. Please Follow Up With: Jake Washington MD When: 4 weeks
--- NOTE | 2019-11-20 11:13 | PCM.OPRPT ---
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 She is experienced progressive shortness of breath attributable to enlargement of her vocal fold polyps and excision was offered in hopes of improvement as a staged procedure. The risk of coronavirus exposure in this time was discussed and she was agreeable to accept this risk in the interest of managing her progressive dyspnea. The risks, alternatives, potential complications, and benefits were discussed at length and any questions answered to the patient and/or caregiver's satisfaction. Witnessed informed consent was obtained in the office, and the patient and/or caregiver was agreeable to proceed. Procedure went as follows: The patient was identified in the preoperative holding and brought to the operating room, placed under general anesthesia, and intubated. When appropriate anesthesia was obtained, the head of bed was rotated and the patient prepped and draped in usual sterile fashion. A dental guard or moistened gauze was then placed to protect the upper gums and the Dedo laryngoscope then introduced. Direct laryngoscopy was then carried out. The lateral posterior pharyngeal wall mucosa, tonsillar fossa, vallecula, piriforms, and epiglottis were noted to be normal in appearance. The true and false vocal folds were then brought into view. The patient was then placed in suspension and the operative microscope brought into the field. Using pledgets soaked in a 50-50 mixture of oxymetazoline and 4% topical lidocaine the true vocal folds were then topicalized. There is no to be bilateral large obstructing polyps of the vocal folds. The right vocal polyp suffered a small laceration during intubation and given this excision on the right side was undertaken. Using microlaryngeal instrumentation the right vocal polyp was then grasped microlaryngeal scissor the redundant mucosa excised taking care to preserve the underlying vocal ligament. This was then sent as surgical specimen. Excellent improvement in the laryngeal inlet was noted. The area was then topicalized for hemostasis with pledgets. The pledgets were then removed and the patient taken out of suspension and returned to anesthesia, was revived, and extubated without complication having tolerated the procedure well. Type of Anesthesia:: General Anesthesiologist: Marques Gonzalez Special Medications: none Specimen's removed: right vocal fold polyp Drains: none Estimated Blood Loss (mL): none Fluids Replaced: 700 mL Grafts/Implants Used: none - Complications none - Admit VTE Documentation VTE Present on Admission: No VTE Mechan Device Prophylaxis: SCD's VTE Pharm Prophylaxis ordered?: No
[2019-11-20 11:46] LABS: Bedside Glucose 149 mg/dL (70-110)
== END 2019-11-20 13:09 | disposition home or self-care (01) ==
LOC: SDC 08:04 → AC 08:09
PROVIDERS: PCP Family Medicine; Referring Provider Otolaryngology; Visit Provider Otolaryngology
PROC: 0CJS8ZZ Inspection of Larynx, Via Natural or Artificial Opening Endoscopic (ICD-10-PCS; CPT 31575; principal; 2019-11-20 09:45)
DX: J38.1 Polyp of vocal cord and larynx (principal); E11.9 Type 2 diabetes mellitus without complications; E78.00 Pure hypercholesterolemia, unspecified; F17.290 Nicotine dependence, other tobacco product, uncomplicated; Z79.84 Long term (current) use of oral hypoglycemic drugs; Z79.899 Other long term (current) drug therapy
CPT/HCPCS: 31541; 80048; 82962; 87635; 88305; 93005; G2023; J7120; J2405; U0003

== ENCOUNTER 2019-12-11 06:24 | Day surgery (SDC) | payer BC, SELFPAY ==
[2019-11-20 08:37] VITALS: BMI 46.0
[2019-12-11 06:53] VITALS: BP 143/89; PULSE 76; RESP 18; TEMP 37.1; O2SAT 98; BMI 46.5
[2019-12-11] MEDS: Lactated Ringers 1,000 ML 100 ML IV (07:12)
[2019-12-11 07:15] LABS: Bedside Glucose 202 mg/dL (70-110)
--- NOTE | 2019-12-11 08:00 | VOCOB_PTH ---
PATIENT: GOLDIE TAPIA LOC: [facility] U#:[id number] AGE/SX: 64/F ROOM: RE12/11/[address]: Dr. Jake Washington MD : 1955 BED: DIS: 12/11/2019 SPEC #: [id number] RECD: 12/11/19 08:53 STATUS: ANA REMiguelito #: [id number] MEÑO: 12/11/19 08:[address]: Jake Washington DEPT: SURGICAL PATHOLOGY RECD BY: Sanjeev Oneal ENTERED: 12/11/19 09:01 SP TYPE: VOCAL CORD OTHR DR: Dr. Joseph Adrian, DO Tissues: Vocal cord, NOS Procedures: Surgery Specimen Level IV HEADER OPERATION: Direct laryngoscopy with excision of tumor PRE-OP DIAGNOSIS: Polyp of vocal cord and larynx TISSUE SUBMITTED: Left vocal cord polyp MICROSCOPIC DIAGNOSIS Left vocal cord polyp, biopsy: Consistent with fragments of benign vocal cord polyp. See comment. SJ:jayla 12/14/19 COMMENT Please make reference to previous specimen ([id number]) right vocal cord lesion, biopsy with diagnosis of benign vocal cord polyp. MICROSCOPIC DESCRIPTION Slides are reviewed. GROSS DESCRIPTION Received in fixative is one container labeled with the patient's name and designated left vocal cord polyp. The specimen consists of multiple irregular fragments of parnell soft tissue that in aggregate measure 1 x 0.5 x 0.1 cm. The specimen is totally submitted in one cassette. / JER:jayla 12/11/19 TC:5 CPT: 15101
[2019-12-11] MEDS: Lidocaine 4% 50 ML Bottle (08:14)
[2019-12-11] MEDS: Oxymetazoline 0.05% 1 SPRAY SPRAY.BTL 15 SPRAY (08:14)
--- NOTE | 2019-12-11 08:30 | DCINST_ITS ---
You will use the following diet at home:: No restrictions Discharge Activity: Return to Normal Activity Call your doctor if your incision/area has: Increased Pain/ Swelling Call your doctor if you observe: Fever of 101 or Higher, Shortness of breath, Uncontrolled pain Allergies/Adverse Reactions: Allergies celecoxib [From Celebrex] Allergy (Verified 12/11/19 06:50) Rash sitagliptin phosphate [From Januvia] Allergy (Verified 12/11/19 06:50) Swelling atorvastatin calcium [From Lipitor] Adverse Reaction (Verified 12/11/19 06:50) Unknown valsartan [From Diovan] Adverse Reaction (Verified 12/11/19 06:50) Other Medications to take at Discharge Multivit,Calc,Mins/Iron/Folic [Women's Daily Formula Caplet] 1 each PO DAILY 03/17/15 Liraglutide [Victoza 2-Grabiel] 1.8 mg SQ DAILY 05/25/16 Lisinopril [Zestril] 10 mg PO QHS 02/27/17 Lovastatin [Mevacor] 10 mg PO QHS 02/27/17 Glimepiride [Amaryl] 1 mg PO DAILY 11/12/19 Ibuprofen [Ibu] 600 mg PO PRN PRN 11/12/19 Metformin HCl [Glucophage] 500 mg PO 1500 11/12/19 Oxycodone HCl/Acetaminophen [Oxycodon-Acetaminophen 7.5-325] 1 ea PO BID 11/12/19 Primary Care Physician: Joseph Adrian DO [Primary Care Provider] - Test Results: Test results from this visit will be discussed in further detail at your follow- up appointment, if applicable. Please Follow Up With: Jake Washington MD When: 2 weeks
--- NOTE | 2019-12-11 08:31 | PCM.OPRPT ---
Problem List (1) Vocal cord polyps Status: Chronic Report of Operation Date of Procedure: 12/11/19 Pre-Operative Diagnosis: Vocal fold polyp, left Post-Operative Diagnosis: Same Surgery/Procedure Performed:: Direct microlaryngoscopy with excision of left vocal fold polyp Description of Surgical Findings:: Jeannette is a 64-year-old female who presented with severe hoarseness or shortness of breath secondary to large bilateral vocal fold polyps. She had undergone resection of the right true vocal fold polyp which resulted in significant improvement in breathing and voicing and returns for the first second stage procedure with treatment of the left vocal fold polyp. The risks of coronavirus exposure in this time period were discussed and she is agreeable to accept this risk in exchange for treatment of her underlying condition. The risks, alternatives, potential complications, and benefits were discussed at length and any questions answered to the patient and/or caregiver's satisfaction. Witnessed informed consent was obtained in the office, and the patient and/or caregiver was agreeable to proceed. Procedure went as follows: The patient was identified in the preoperative holding and brought to the operating room, placed under general anesthesia, and intubated. When appropriate anesthesia was obtained, the head of bed was rotated and the patient prepped and draped in usual sterile fashion. A dental guard or moistened gauze was then placed to protect the upper gums and the Dedo laryngoscope then introduced. Direct laryngoscopy was then carried out. The lateral posterior pharyngeal wall mucosa, tonsillar fossa, vallecula, piriforms, and epiglottis were noted to be normal in appearance. The true and false vocal folds were then brought into view. The patient was then placed in suspension and the operative microscope brought into the field. Using pledgets soaked in a 50-50 mixture of oxymetazoline and 4% topical lidocaine the true vocal folds were then topicalized. There is noted to be excellent healing of the right true vocal fold with complete resolution of the large obstructing polyp. A large obstructing left polyp was noted and this was then grasped with an atraumatic forceps and sharply excised along the superior aspect of the vocal fold maintaining an inferiorly based flap that was then redraped over the vocal ligament. This was then sent for pathologic specimen. Pledgets were then placed for hemostasis. This resulted in excellent improvement of the laryngeal inlet and resolution of the polyps bilaterally. The pledgets were then removed and the patient taken out of suspension and returned to anesthesia, was revived, and extubated without complication having tolerated the procedure well. Type of Anesthesia:: General Anesthesiologist: Marques Gonzalez Special Medications: none Specimen's removed: left vocal fold polyp Drains: none Estimated Blood Loss (mL): 0 mL Fluids Replaced: 600 mL Grafts/Implants Used: none - Complications none - Admit VTE Documentation VTE Present on Admission: No VTE Mechan Device Prophylaxis: SCD's VTE Pharm Prophylaxis ordered?: No
[2019-12-11 08:41] VITALS: BP 129/54; BP 143/89; PULSE 79; RESP 18; TEMP 36.3; O2SAT 93
[2019-12-11 08:45] VITALS: BP 118/50; BP 143/89; PULSE 74; RESP 16; O2SAT 97
[2019-12-11 09:00] VITALS: BP 116/62; BP 143/89; PULSE 71; RESP 16; O2SAT 93
[2019-12-11 09:15] VITALS: BP 111/68; BP 143/89; PULSE 67; RESP 16; TEMP 36.5; O2SAT 94
[2019-12-11 09:26] LABS: Bedside Glucose 173 mg/dL (70-110)
[2019-12-11 09:52] VITALS: BP 143/72; BP 143/89; PULSE 71; RESP 16; TEMP 36.9; O2SAT 94
== END 2019-12-11 10:03 | disposition home or self-care (01) ==
LOC: SDC 06:24 → AC 06:26
PROVIDERS: Anesthesiology; PCP Family Medicine; Referring Provider Otolaryngology; Visit Provider Otolaryngology
PROC: 0CJS8ZZ Inspection of Larynx, Via Natural or Artificial Opening Endoscopic (ICD-10-PCS; CPT 31575; principal; 2019-12-11 07:55)
DX: J38.1 Polyp of vocal cord and larynx (principal); R49.0 Dysphonia; R06.00 Dyspnea, unspecified; E11.9 Type 2 diabetes mellitus without complications; E78.00 Pure hypercholesterolemia, unspecified; M19.90 Unspecified osteoarthritis, unspecified site; Z78.0 Asymptomatic menopausal state; Z87.891 Personal history of nicotine dependence
CPT/HCPCS: 00320; 31540; 82962; 87635; 88305; 94799; J7120; J2405; U0003

== ENCOUNTER → 2020-03-10 11:36 | Outpatient (CLI) | payer BC, SELFPAY ==
[2018-05-18 17:24] VITALS: BMI 48.2
[2020-03-10 17:02] LABS: Absolute Lymphocyte Count 2.18 X10^3/uL (0.83-4.51); Basophil# 0.05 X10^3/uL; Basophil% 0.5 % (0-1); Eosinophil# 0.11 X10^3/uL; Hematocrit 51.8 % (37-47); Hemoglobin 16.1 g/dL (12.0-15.0); Lymphocyte # 2.18 X10^3/ul (4.0); Lymphocyte % 19.7 % (19-41); Mean Corp Hgb Conc 31.1 g/dL (32-36); Mean Corpuscular Hgb 29.3 pg (27.0-32.0); Mean Corpuscular Volume 94.2 fL (81-99); Mean Platelet Vol. 11.2 fl (6.2-12.0); Monocyte# 0.63 X10^3/uL; Monocyte% 5.7 % (0-10); NRBC Flagged by Analyzer 0 % (0-5); Neutrophil # 8.01 X10^3/uL (2.7-7.7); Neutrophil % 72.6 % (47-70); Platelet Count 224 K/mm3 (150-450); RBC Distribution Width CV 14.5 % (11.6-14.6); RBC Distribution Width SD 50.1 fl (35.1-43.9)
[2020-03-10 17:16] LABS: ALB/GLOB Ratio 0.8 RATIO (0.9-2.4); AST(SGOT) 13 U/L (15-37); Alanine Aminotransfer ALT/SGPT 24 U/L (13-56); Albumin, Serum 3.5 g/dL (3.2-5.0); Alkaline Phosphatase 120 U/L (45-117); Anion Gap 6 (5-15); BUN 22 mg/dL (7-18); BUN/Creat Ratio 22.1 RATIO (10-20); Calcium,Total 8.9 mg/dL (8.5-10.1); Chloride 107 mmol/L (98-107); Cholesterol 183 mg/dL (200); Creatinine, Serum 0.99 mg/dL (0.55-1.02); EST Glomerular Filtration Rate 60 mL/min (>60); Est Glom Filt Rate - Afr Amer 72 mL/min (>60); Globulin 4.3 g/dL (2.2-4.2); Glucose 139 mg/dL (74-106); High Density Lipoprotein 43 mg/dL; Potassium 4.8 mmol/L (3.5-5.1); Protein, Total 7.8 g/dL (6.4-8.2); Sodium Level 138 mmol/L (136-145); Triglycerides 139 mg/dL; Very Low Density Lipoprotein 28 mg/dL (5-40)
[2020-03-10 17:29] LABS: Microalbumin:Creatinine Ratio 171.2 mg/g CRE (<30 mg/g CRE)
[2020-03-10 17:47] LABS: Hemoglobin A1c 7.4 % (3.8-5.6)
== END ==
PROVIDERS: Family Provider Family Medicine; PCP Family Medicine; Visit Provider Family Medicine
DX: Z00.00 Encounter for general adult medical examination without abnormal findings (principal); E11.40 Type 2 diabetes mellitus with diabetic neuropathy, unspecified; E78.5 Hyperlipidemia, unspecified
CPT/HCPCS: 36415; 80053; 80061; 82043; 82570; 83036; 85025

== ENCOUNTER → 2020-11-07 12:36 | Emergency (ER) | payer MEDICARE, SELFPAY ==
--- NOTE | 2020-11-07 12:44 | EDS_ITS ---
HPI History of Present Illness Chief Complaint: CPR Informant: EMS Narrative Narrative: EMS responded to an unresponsive patient who was short of breath before she became unresponsive. Apparently she was on the phone with her son, due to feeling short of breath, and the line went so the son went over there, which was about 5 or 10 minutes later, 6 miles. She was unresponsive. He called EMS who found her pulseless and not breathing in asystole, they star wesley ACLS protocol, she went into ventricular fibrillation, they shocked her twice, provided rounds of ACLS including epinephrine 12 doses total before arrival, 2 amp of bicarb, 1 amp of calcium, the patient went into PEA after V. fib and basically remained there. They called in for medical control. At the time of their call, they had been working on her for about 30 minutes, had provided 7 or 8 doses of epinephrine, 2 amps of sodium bicarb, and they had her in PEA at 90 when they paused their Solitario device. I advised that they give calcium and transport so that we could evaluate further, including bedside cardiac ultrasound, and to call back for pronouncement if the patient was in asystole prior to arrival in ED. PFSH PFS Home Medications fcmwtxqo-nyks-YC-calcium-mins [Women's Daily Formula] 1 ea PO DAILY 03/17/15 [History Last Taken Unknown] Liraglutide [Victoza 2-Grabiel] 1.8 mg SQ DAILY 05/25/16 [History Last Taken 02/27/17] lisinopril 10 mg PO QHS 02/27/17 [History Last Taken 02/26/17] lovastatin 10 mg PO QHS 02/27/17 [History Last Taken Unknown] glimepiride 1 mg PO DAILY 11/12/19 [History Last Taken Unknown] ibuprofen 600 mg PO PRN PRN 11/12/19 [History Last Taken Unknown] metformin 500 mg PO 1500 11/12/19 [History Last Taken Unknown] oxycodone-acetaminophen 1 ea PO BID 11/12/19 [History Last Taken Unknown] acetaminophen 500 mg PO Q4H PRN PRN tab 12/11/19 [Rx Last Taken Unknown] Allergy/AdvReac Type Severity Reaction Status Date / Time celecoxib [From Celebrex] Allergy Rash Verified 12/11/19 06:50 sitagliptin phosphate Allergy Swelling Verified 12/11/19 06:50 [From Januvia] atorvastatin calcium AdvReac Unknown Verified 12/11/19 06:50 [From Lipitor] valsartan [From Diovan] AdvReac Other Verified 12/11/19 06:50 Social History Smoking Status: Former smoker ROS ROS ED Review of Systems ROS Unobtainable: due to mental status EXAM Physical Exam Const Vital Signs: 11/07/20 12:37 Oxygen Delivery Method Ambu-Bag Positive well nourished, well developed and obese Constitutional Narrative: Unresponsive General Appearance ED: well developed and pallor Nutritional Appearance: obese HEENT normocephalic and atraumatic Eyes Eyes Narrative: Fixed dilated pupils nonresponsive Neck supple Resp Resp Narrative: No spontaneous respirations, breath sounds present bilaterally and symmetric. Cardio Cardio Narrative: No cardiac sounds no pulse spontaneously. Pulses present with CPR given by Solitario device. Neuro Neuro Narrative: Obtunded, GCS 3 Skin General Skin Exam: pallor Lesions: no lesions Rashes: no rashes MDM MDM MDM Narrative Medical decision making narrative: Upon receiving the patient, I evaluated her, she had good pulses with CPR. I then paused the Solitario device. The patient was in asystole. I simultaneously performed bedside cardiac ultrasound, there is no motion. Given that, I declared the patient at 1237. Critical Care Time Critical care time (excluding procedures): 30-74 minutes (35 min), Including time spent:, Discussing w/Patient &/or Family/Manager Tax and Performing Direct Patient Care at Bedside Discharge Plan Triage Chief Complaint: CPR ED Provider: Nathaniel Stevenson Dx/Rx/DC Orders Clinical Impression: Cardiopulmonary arrest Prescriptions: No Action adhpjsss-fflv-NP-calcium-mins [Women's Daily Formula] 1 EACH tablet 1 ea PO DAILY RF: 0 Liraglutide [Victoza 2-Grabiel] 0.6 MG/0.1 ML Ml 1.8 mg SQ DAILY RF: 0 lovastatin 10 MG tablet 10 mg PO QHS RF: 0 lisinopril 10 MG tablet 10 mg PO QHS RF: 0 metformin 500 MG tablet 500 mg PO 1500 RF: 0 glimepiride 1 MG tablet 1 mg PO DAILY RF: 0 ibuprofen 600 MG tablet 600 mg PO PRN PRN (Reason: Pain Or Fever) RF: 0 oxycodone-acetaminophen 1 EACH tablet 1 ea PO BID RF: 0 acetaminophen 500 MG tablet 500 mg PO Q4H PRN PRN (Reason: Pain Score 1-5/10) RF: 0 Primary Care Provider: Joseph Adrian Referrals: Joseph Adrian DO [Primary Care Provider] - Disposition Disposition: Date/Time: 11/07/20 12:37
--- NOTE | 2020-11-07 13:40 | CM.ED ---
SOCIAL WORK [place] Responded to [place]. Daughter, Linda arrived. Dr. Stevenson, [place], and this worker met with daughter to update patient has . Emotional support provided. Daughter requested to step out of department to call family. Escorted daughter out of department. This worker to remain available for needs. Galina Schreiber, TACTICAL DECEPTION PLANS OFFICER, SOFTWARE DESIGNER
--- NOTE | 2020-11-07 14:13 | CHAPLAIN ---
Type of Pastoral Visit ___ Initial Visit ___ Follow-up Visit ___ On-call Visit ___ General Patient Visit ___ Spiritual Assessment ___ Family Conference ___ Bereavement ___ Rapid Response _x__ [place] ___ Other (describe below) Pastoral Care Referral From ___ Patient ___ Family ___ Nurse ___ Physician ___ Push Bench Operator Helper ___ Occupational Therapy Director _x__ Other (describe below) Sacrament/Intervention ___ Active listening ___ Anointing ___ Judaism _x__ Bereavement ___ Communion ___ Alpa exploration ___ ___ Life review ___ Prayer ___ Reconciliation ___ Sacrament of Sick _x__ Supportive presence ___ Wedding _x__ Other (describe below) Pastoral Comments arrived to ED at [facility]; pt was being attended by medical team; squad members indicate that family would be coming to hospital; waited for family to arrive; pt ; met daughter at doorway and escorted her to meet with DR and SW; offered support to daughter; daughter left ED to make phone calls; SW took over for follow up
--- NOTE | 2020-11-07 14:59 | CM.ED ---
SOCIAL WORK Emotional support provided to patient's son in room. All questions answered. Son reports does not believe any additional family members will be in. Staff mahsa. Galina Schreiber MSW, AMMONIA OPERATOR
== END ==
PROVIDERS: Emergency Provider Emergency Medicine; PCP Family Medicine
DX: I46.9 Cardiac arrest, cause unspecified (principal); E66.9 Obesity, unspecified; Z87.891 Personal history of nicotine dependence
CPT/HCPCS: 92950; 99291; J7030; A4216